=== PATIENT | female | born 1995 | race African-American/Black ===

== ENCOUNTER 2017-04-26 12:05 | Emergency (ER) | payer OTHER, MEDICAID ==
[~2017-04-26] VITALS: Ht 165.1 cm; Wt 84.0 kg
[~2017-04-26 12:05] MED LIST: MOTR200T44 PO; PRENTAB43 PO; ROBISYP5 PO; TYLE325T5 PO; [UNRECOGNIZED DRUG - CODE] MT
[2017-04-26 12:06] VITALS: BP 121/70
[2017-04-26] MEDS ORDERED: PREVTAB2 (12:16)
[2017-04-26] MEDS ORDERED: ONDANSETRON 4MG/2ML VIAL (J2405) IV ONE (14:00)
[2017-04-26] MEDS ORDERED: KETOROLAC 30 MG/ML VIAL (J1885) IV ONE (14:00)
[2017-04-26 14:34] LABS: BASO % 0.6 % (0.0-1.0); EOS # 0.1 K/mm3 (0.0-0.50); EOS % 1.4 % (0.0-3.0); LARGE UNSTAINED CELL # 0.1 K/mm3 (0.0-0.4); LARGE UNSTAINED CELL % 1.2 % (0.0-4.0); MEAN CORPUSCULAR HGB CONC 33.4 g/dl (32.0-36.5); MEAN CORPUSCULAR VOLUME 80.9 fl (80.0-96.0); MONO # 0.4 K/mm3 (0.0-0.8); MONO % 4.6 % (0.0-5.0); NEUTROPHILS # 5.2 K/mm3 (1.8-7.7); NEUTROPHILS % 67.2 % (36.0-66.0); PLATELET COUNT, AUTOMATED 238 k/mm3 (150-450); WHITE BLOOD COUNT 7.8 K/mm3 (4.0-10.0)
[2017-04-26 14:57] LABS: ALBUMIN 3.7 GM/DL (3.2-5.2); ALBUMIN/GLOBULIN RATIO 0.95 (1.00-1.93); ALKALINE PHOSPHATASE 84 U/L (45-117); ALT/SGPT 21 U/L (12-78); ANION GAP 6 MEQ/L (8-16); AST/SGOT 14 U/L (15-37); BILIRUBIN,TOTAL 0.3 MG/DL (0.2-1.0); BLOOD UREA NITROGEN 13 MG/DL (7-18); CALCIUM LEVEL 8.8 MG/DL (8.5-10.1); CARBON DIOXIDE LEVEL 29 MEQ/L (21-32); CHLORIDE LEVEL 105 MEQ/L (98-107); CREATININE FOR GFR 0.83 MG/DL (0.55-1.02); GLUCOSE, FASTING 75 MG/DL (70-105); POTASSIUM SERUM 4.5 MEQ/L (3.5-5.1); SODIUM LEVEL 140 MEQ/L (136-145); TOTAL PROTEIN 7.6 GM/DL (6.4-8.2)
[2017-04-26] MEDS ORDERED: PYRI1TAB5 PO (15:42)
[2017-04-26] MEDS ORDERED: CIPR-249 PO (15:42)
[2017-04-26] MEDS ORDERED: CIPROFLOXACIN 500 MG TAB PO ONE (15:45)
--- NOTE | 2017-04-26 16:35 | REP ---
Renal and bladder ultrasound: The kidneys are normal size. Right kidney measures 10.3 x 4.8 x 4.02 cm. Left kidney measures 11.0 4.5 x 5.4 cm. Renal cortical echogenicity is normal bilaterally. There is no hydronephrosis on the right on the left. There are no renal calculi, masses or cysts on the right on the left. Air. Bladder ultrasound: The bladder is incompletely distended and cannot be evaluated by ultrasound at this time. Impression: Negative renal ultrasound. The bladder is nondistended and cannot be evaluated at this time. Signed by Aubrey Agudelo MD 04/26/2017 03:13 P
--- NOTE | 2017-04-26 16:45 | REP ---
RIGHT UPPER QUADRANT ULTRASOUND: Real-time sonographic evaluation of the right upper quadrant performed. Gallbladder demonstrates no evidence of intraluminal sludge or calculi, wall thickening or pericholecystic fluid. There is no intrahepatic or extrahepatic biliary dilation, the common bile duct measuring 3 mm in diameter. Liver demonstrates diffuse heterogeneous increased echotexture compatible with diffuse fibrofatty infiltration. No gross liver mass is seen. Pancreas could not be visualized due to overlying bowel gas. Right kidney demonstrates no hydronephrosis or nephrolithiasis with normal size at 10.6 cm in length. No free fluid is seen. IMPRESSION: Diffuse fibrofatty infiltration of the liver. Otherwise negative right upper quadrant ultrasound. Signed by Aubrey Chinchilla MD 04/27/2017 05:03 P
== END 2017-04-26 15:53 | disposition home or self-care (01) ==
LOC: M ED 12:05
DX: N10 Acute pyelonephritis (principal)
CPT/HCPCS: 76705; 76775; 80053; 81001; 81025; 85025; 86140; 96374; 96375; 99284; J1885; J2405

== ENCOUNTER 2017-04-28 15:43 | Emergency (ER) | payer OTHER, MEDICAID ==
[~2017-04-28] VITALS: Ht 165.1 cm; Wt 83.2 kg
[~2017-04-28 15:43] MED LIST changes: +CIPR-249 PO; +PREVTAB2; +PYRI1TAB5 PO
[2017-04-28] MEDS ORDERED: IBUP-1022 PO (15:52)
[2017-04-28] MEDS ORDERED: IBUPROFEN 600 MG TAB PO ONE (16:45)
[2017-04-28 16:54] LABS: MEAN CORPUSCULAR HEMOGLOBIN 27.3 pg (27.0-33.0); MEAN CORPUSCULAR HGB CONC 33.7 g/dl (32.0-36.5); MEAN CORPUSCULAR VOLUME 81.2 fl (80.0-96.0); RED CELL DISTRIBUTION WIDTH 12.9 % (11.5-14.5); WHITE BLOOD COUNT 5.5 K/mm3 (4.0-10.0)
[2017-04-28 17:17] LABS: ALBUMIN 3.8 GM/DL (3.2-5.2); ALKALINE PHOSPHATASE 91 U/L (45-117); ALT/SGPT 23 U/L (12-78); AMYLASE 50 U/L (25-115); ANION GAP 6 MEQ/L (8-16); AST/SGOT 15 U/L (15-37); BILIRUBIN,DIRECT < 0.1 MG/DL (0.0-0.2); BILIRUBIN,TOTAL 0.2 MG/DL (0.2-1.0); BLOOD UREA NITROGEN 10 MG/DL (7-18); CARBON DIOXIDE LEVEL 30 MEQ/L (21-32); CHLORIDE LEVEL 104 MEQ/L (98-107); CREATININE FOR GFR 0.84 MG/DL (0.55-1.02); GLUCOSE, FASTING 83 MG/DL (70-105); SODIUM LEVEL 140 MEQ/L (136-145)
[2017-04-28 17:32] VITALS: BP 149/87
== END 2017-04-28 17:37 | disposition home or self-care (01) ==
LOC: M ED 15:43
DX: N10 Acute pyelonephritis (principal)

== ENCOUNTER 2017-07-04 12:40 | Emergency (ER) | payer OTHER, MEDICAID ==
[~2017-07-04] VITALS: Ht 165.1 cm; Wt 81.8 kg
[~2017-07-04 12:40] MED LIST changes: +IBUP-1022 PO
[2017-07-04] MEDS ORDERED: DEPO150I IM (13:14)
[2017-07-04] MEDS ORDERED: AUGMENTIN 875 MG TAB PO ONE (13:45)
[2017-07-04] MEDS ORDERED: AUGM875T28 PO (14:07)
[2017-07-04 14:12] VITALS: BP 120/71
== END 2017-07-04 14:12 | disposition home or self-care (01) ==
LOC: M ED 12:40
DX: J03.00 Acute streptococcal tonsillitis, unspecified (principal)

== ENCOUNTER 2017-11-07 11:41 | Emergency (ER) | payer OTHER, MEDICAID ==
[2017-11-07] MEDS: BENZONATATE 100 MG CAP PO (14:05)
[2017-11-07 15:02] LABS: INFLUENZA A AMPLIFICATION NEGATIVE (NEGATIVE); INFLUENZA B AMPLIFICATION NEGATIVE (NEGATIVE)
== END 2017-11-07 15:45 | disposition home or self-care (01) ==
LOC: M ED 11:41
DX: J06.9 Acute upper respiratory infection, unspecified (principal); B34.9 Viral infection, unspecified; Z79.3 Long term (current) use of hormonal contraceptives
CPT/HCPCS: 87502

== ENCOUNTER → 2018-01-04 | Outpatient (REF) | payer OTHER, MEDICAID ==
[2018-01-04 22:04] LABS: APPEARANCE, URINE CLEAR (CLEAR); BACTERIA, URINE AUTO 1+ (NEGATIVE); BILIRUBIN, URINE AUTO NEGATIVE (NEGATIVE); BLOOD, URINE BLOOD NEGATIVE (NEGATIVE); COLOR, URINE YELLOW (YELLOW); GLUCOSE, URINE (UA) AUTO NEGATIVE (NEGATIVE); KETONE, URINE AUTO NEGATIVE (NEGATIVE); LEUKOCYTE ESTERASE, URINE AUTO NEGATIVE (NEGATIVE); MUCUS, URINE SMALL (NEGATIVE); NITRITE, URINE AUTO NEGATIVE (NEGATIVE); PROTEIN, URINE AUTO NEGATIVE (NEGATIVE); RBC, URINE AUTO 0 /HPF (0-3); SPECIFIC GRAVITY URINE AUTO 1.019 (1.002-1.035); SQUAMOUS EPITHELIAL CELL UR AU 3 /HPF (0-6); UROBILINOGEN, URINE AUTO 0.2 mg/dL (0.0-2.0); WBC, URINE AUTO 2 /HPF (0-3)
== END ==
LOC: M LAB REF 09:37
DX: N39.0 Urinary tract infection, site not specified (principal)
CPT/HCPCS: 81001

== ENCOUNTER 2018-05-31 20:14 | Emergency (ER) | payer OTHER, MEDICAID ==
[2018-05-31 20:50] LABS: BASO % 0.2 % (0.0-1.0); EOS # 0.1 10^3/uL (0.0-0.50); EOS % 0.7 % (0.0-3.0); HEMATOCRIT 41.3 % (36.0-47.0); HEMOGLOBIN 13.8 g/dl (12.0-15.5); IMMATURE GRANULOCYTE % 0.2 % (0-3.0); LYMPH # 2.9 10^3/uL (1.5-6.5); LYMPH % 33.3 % (24.0-44.0); MEAN CORPUSCULAR HEMOGLOBIN 27.1 pg (27.0-33.0); MEAN CORPUSCULAR HGB CONC 33.4 g/dl (32.0-36.5); MONO # 0.6 10^3/uL (0.0-0.8); MONO % 6.8 % (0.0-5.0); NEUTROPHILS # 5.1 10^3/uL (1.8-7.7); NEUTROPHILS % 58.8 % (36.0-66.0); PLATELET COUNT, AUTOMATED 216 10^3/uL (150-450); RED CELL DISTRIBUTION WIDTH 12.5 % (11.5-14.5); WHITE BLOOD COUNT 8.6 10^3/uL (4.0-10.0)
[2018-05-31 20:53] LABS: CONTROL LINE UCG INT CTR LINE PRESENT; URINE PREG TEST NEGATIVE (NEGATIVE)
[2018-05-31 20:54] LABS: KETONE, URINE AUTO RFX NEGATIVE (NEGATIVE); LEUKOCYTE ESTERASE UR AUTO RFX NEGATIVE (NEGATIVE); NITRITE, URINE AUTO RFX NEGATIVE (NEGATIVE); RBC, URINE AUTO RFX 1 /HPF (0-3); SPECIFIC GRAVITY UR AUTO RFX 1.012 (1.002-1.035); SQUAM EPITHELIAL CELL UR AURFX 0 /HPF (0-6); WBC, URINE AUTO RFX 1 /HPF (0-3)
[2018-05-31 21:07] LABS: CONTROL LINE HCG INT CTR LINE PRESENT; HCG, SERUM QUALITATIVE NEGATIVE (NEGATIVE)
[2018-05-31 21:18] LABS: ANION GAP 7 MEQ/L (8-16); BLOOD UREA NITROGEN 10 MG/DL (7-18); CALCIUM LEVEL 9.1 MG/DL (8.5-10.1); CARBON DIOXIDE LEVEL 26 MEQ/L (21-32); CHLORIDE LEVEL 106 MEQ/L (98-107); CREATININE FOR GFR 0.83 MG/DL (0.55-1.30); GLUCOSE, FASTING 83 MG/DL (70-100); POTASSIUM SERUM 4.7 MEQ/L (3.5-5.1); SODIUM LEVEL 139 MEQ/L (136-145)
[2018-05-31] MEDS ORDERED: HYDROMORPHONE HCL 0.5 MG/ 0.5 ML SYRINGE (J1170 PER 1) IV (23:15)
== END 2018-06-01 01:47 | disposition home or self-care (01) ==
LOC: M ED 06-01 01:47
DX: N92.0 Excessive and frequent menstruation with regular cycle (principal); Z79.3 Long term (current) use of hormonal contraceptives
CPT/HCPCS: 76856

== ENCOUNTER 2018-06-03 11:19 | Emergency (ER) | payer OTHER ==
[2018-06-03] MEDS: NS 1,000 ML IV (13:46)
[2018-06-03] MEDS: MORPHINE 4 MG/ML 1ML VIAL/SYRINGE (J2270) IV (13:47)
[2018-06-03] MEDS: ONDANSETRON 4MG/2ML VIAL (J2405) IV (13:47)
[2018-06-03 14:20] LABS: KETONE, URINE AUTO RFX NEGATIVE (NEGATIVE); LEUKOCYTE ESTERASE UR AUTO RFX NEGATIVE (NEGATIVE); NITRITE, URINE AUTO RFX NEGATIVE (NEGATIVE); RBC, URINE AUTO RFX 7 /HPF (0-3); SPECIFIC GRAVITY UR AUTO RFX 1.021 (1.002-1.035); SQUAM EPITHELIAL CELL UR AURFX 1 /HPF (0-6); WBC, URINE AUTO RFX 5 /HPF (0-3)
[2018-06-03 14:37] LABS: BASO % 0.3 % (0.0-1.0); EOS # 0.1 10^3/uL (0.0-0.50); EOS % 1.5 % (0.0-3.0); HEMATOCRIT 34.6 % (36.0-47.0); HEMOGLOBIN 11.7 g/dl (12.0-15.5); IMMATURE GRANULOCYTE % 0.2 % (0-3.0); LYMPH # 1.8 10^3/uL (1.5-6.5); MEAN CORPUSCULAR HEMOGLOBIN 27.1 pg (27.0-33.0); MEAN CORPUSCULAR HGB CONC 33.8 g/dl (32.0-36.5); MEAN CORPUSCULAR VOLUME 80.1 fl (80.0-96.0); MONO # 0.6 10^3/uL (0.0-0.8); MONO % 6.8 % (0.0-5.0); NEUTROPHILS # 6.8 10^3/uL (1.8-7.7); NEUTROPHILS % 72.2 % (36.0-66.0); PLATELET COUNT, AUTOMATED 188 10^3/uL (150-450); RED BLOOD COUNT 4.32 10^6/uL (4.00-5.40); RED CELL DISTRIBUTION WIDTH 12.4 % (11.5-14.5); WHITE BLOOD COUNT 9.4 10^3/uL (4.0-10.0)
[2018-06-03 15:26] LABS: ALBUMIN 3.4 GM/DL (3.2-5.2); ALBUMIN/GLOBULIN RATIO 1.06 (1.00-1.93); ALKALINE PHOSPHATASE 61 U/L (45-117); ALT/SGPT 20 U/L (12-78); ANION GAP 8 MEQ/L (8-16); AST/SGOT 16 U/L (7-37); BILIRUBIN,DIRECT 0.1 MG/DL (0.0-0.2); BILIRUBIN,TOTAL 0.3 MG/DL (0.2-1.0); BLOOD UREA NITROGEN 10 MG/DL (7-18); CALCIUM LEVEL 8.4 MG/DL (8.5-10.1); CARBON DIOXIDE LEVEL 24 MEQ/L (21-32); CHLORIDE LEVEL 109 MEQ/L (98-107); CREATININE FOR GFR 0.64 MG/DL (0.55-1.30); GLUCOSE, FASTING 81 MG/DL (70-100); LIPASE 85 U/L (73-393); POTASSIUM SERUM 4.9 MEQ/L (3.5-5.1); SODIUM LEVEL 141 MEQ/L (136-145); TOTAL PROTEIN 6.6 GM/DL (6.4-8.2)
[2018-06-03] MEDS ORDERED: ISOVUE-370 76% 100ML VIAL (Q9967) As Ordered (15:31)
== END 2018-06-03 17:19 | disposition home or self-care (01) ==
LOC: M ED 11:19
DX: R10.2 Pelvic and perineal pain (principal)
CPT/HCPCS: J2270

== ENCOUNTER 2018-06-08 07:42 | Emergency (ER) | payer OTHER ==
[2018-06-08 08:59] LABS: BASO % 0.3 % (0.0-1.0); EOS # 0.1 10^3/uL (0.0-0.50); HEMATOCRIT 35.4 % (36.0-47.0); HEMOGLOBIN 11.9 g/dl (12.0-15.5); IMMATURE GRANULOCYTE % 0.3 % (0-3.0); LYMPH # 1.5 10^3/uL (1.5-6.5); LYMPH % 18.7 % (24.0-44.0); MEAN CORPUSCULAR HEMOGLOBIN 26.9 pg (27.0-33.0); MEAN CORPUSCULAR HGB CONC 33.6 g/dl (32.0-36.5); MEAN CORPUSCULAR VOLUME 79.9 fl (80.0-96.0); MONO # 0.8 10^3/uL (0.0-0.8); MONO % 9.7 % (0.0-5.0); NEUTROPHILS # 5.5 10^3/uL (1.8-7.7); PLATELET COUNT, AUTOMATED 241 10^3/uL (150-450); RED BLOOD COUNT 4.43 10^6/uL (4.00-5.40); RED CELL DISTRIBUTION WIDTH 12.3 % (11.5-14.5); WHITE BLOOD COUNT 7.8 10^3/uL (4.0-10.0)
[2018-06-08 09:17] LABS: ALBUMIN 3.3 GM/DL (3.2-5.2); ALKALINE PHOSPHATASE 72 U/L (45-117); ALT/SGPT 18 U/L (12-78); ANION GAP 9 MEQ/L (8-16); AST/SGOT 9 U/L (7-37); BILIRUBIN,DIRECT < 0.1 MG/DL (0.0-0.2); BILIRUBIN,TOTAL 0.3 MG/DL (0.2-1.0); BLOOD UREA NITROGEN 8 MG/DL (7-18); CALCIUM LEVEL 8.6 MG/DL (8.5-10.1); CARBON DIOXIDE LEVEL 25 MEQ/L (21-32); CHLORIDE LEVEL 110 MEQ/L (98-107); CREATININE FOR GFR 0.68 MG/DL (0.55-1.30); GLUCOSE, FASTING 80 MG/DL (70-100); POTASSIUM SERUM 4.1 MEQ/L (3.5-5.1); SODIUM LEVEL 144 MEQ/L (136-145); TOTAL PROTEIN 7.4 GM/DL (6.4-8.2)
[2018-06-08 09:29] LABS: APPEARANCE, URINE HAZY (CLEAR); BACTERIA, URINE AUTO 1+ (NEGATIVE); BILIRUBIN, URINE AUTO NEGATIVE (NEGATIVE); BLOOD, URINE BLOOD 3+ (NEGATIVE); COLOR, URINE YELLOW (YELLOW); GLUCOSE, URINE (UA) AUTO NEGATIVE (NEGATIVE); KETONE, URINE AUTO NEGATIVE (NEGATIVE); LEUKOCYTE ESTERASE, URINE AUTO 1+ (NEGATIVE); MUCUS, URINE SMALL (NEGATIVE); NITRITE, URINE AUTO NEGATIVE (NEGATIVE); PROTEIN, URINE AUTO 1+ mg/dL (NEGATIVE); RBC, URINE AUTO 2 /HPF (0-3); SPECIFIC GRAVITY URINE AUTO 1.028 (1.002-1.035); SQUAMOUS EPITHELIAL CELL UR AU 3 /HPF (0-6); WBC, URINE AUTO 15 /HPF (0-3)
[2018-06-08] MEDS: KETOROLAC 60 MG/2 ML VIAL (J1885) IM (10:13)
== END 2018-06-08 11:30 | disposition home or self-care (01) ==
LOC: M ED 07:42
DX: N83.201 Unspecified ovarian cyst, right side (principal); Z79.3 Long term (current) use of hormonal contraceptives
CPT/HCPCS: J1885

== ENCOUNTER 2018-06-10 21:05 | Inpatient (IN) | payer OTHER ==
[2018-06-10] MEDS: NS 1,000 ML IV (23:00)
[2018-06-10 23:07] LABS: BASO % 0.2 % (0.0-1.0); EOS # 0.1 10^3/uL (0.0-0.50); EOS % 0.9 % (0.0-3.0); HEMATOCRIT 36.3 % (36.0-47.0); HEMOGLOBIN 12.1 g/dl (12.0-15.5); IMMATURE GRANULOCYTE % 0.3 % (0-3.0); LYMPH # 1.6 10^3/uL (1.5-6.5); LYMPH % 18.4 % (24.0-44.0); MEAN CORPUSCULAR HEMOGLOBIN 27.1 pg (27.0-33.0); MEAN CORPUSCULAR HGB CONC 33.3 g/dl (32.0-36.5); MEAN CORPUSCULAR VOLUME 81.4 fl (80.0-96.0); MONO # 0.8 10^3/uL (0.0-0.8); MONO % 9.5 % (0.0-5.0); NEUTROPHILS # 6.2 10^3/uL (1.8-7.7); NEUTROPHILS % 70.7 % (36.0-66.0); PLATELET COUNT, AUTOMATED 240 10^3/uL (150-450); RED BLOOD COUNT 4.46 10^6/uL (4.00-5.40); RED CELL DISTRIBUTION WIDTH 12.2 % (11.5-14.5); WHITE BLOOD COUNT 8.8 10^3/uL (4.0-10.0)
[2018-06-10] MEDS: ONDANSETRON 4MG/2ML VIAL (J2405) IV (23:07)
[2018-06-10] MEDS: MORPHINE 4 MG/ML 1ML VIAL/SYRINGE (J2270) IV (23:08)
[2018-06-10 23:44] LABS: POS COUNT POS FLAG
[2018-06-10 23:55] LABS: ALBUMIN 3.2 GM/DL (3.2-5.2); ALKALINE PHOSPHATASE 88 U/L (45-117); ALT/SGPT 22 U/L (12-78); ANION GAP 7 MEQ/L (8-16); AST/SGOT 18 U/L (7-37); BILIRUBIN,DIRECT 0.1 MG/DL (0.0-0.2); BILIRUBIN,TOTAL 0.3 MG/DL (0.2-1.0); BLOOD UREA NITROGEN 8 MG/DL (7-18); CALCIUM LEVEL 8.6 MG/DL (8.5-10.1); CARBON DIOXIDE LEVEL 28 MEQ/L (21-32); CHLORIDE LEVEL 105 MEQ/L (98-107); CREATININE FOR GFR 0.71 MG/DL (0.55-1.30); GLUCOSE, FASTING 86 MG/DL (70-100); LIPASE 123 U/L (73-393); SODIUM LEVEL 140 MEQ/L (136-145); TOTAL PROTEIN 7.8 GM/DL (6.4-8.2)
[2018-06-10 23:58] LABS: LACTIC ACID SEPSIS PROTOCOL 0.6 MMOL/L (0.4-2.0)
[2018-06-11 00:10] LABS: CONTROL LINE HCG INT CTR LINE PRESENT; HCG, SERUM QUALITATIVE NEGATIVE (NEGATIVE)
[2018-06-11] MEDS ORDERED: ISOVUE-370 76% 100ML VIAL (Q9967) As Ordered (00:35)
[2018-06-11 02:22] LABS: KETONE, URINE AUTO RFX 1+ mg/dL (NEGATIVE); NITRITE, URINE AUTO RFX NEGATIVE (NEGATIVE); RBC, URINE AUTO RFX 8 /HPF (0-3); SQUAM EPITHELIAL CELL UR AURFX 9 /HPF (0-6)
[2018-06-11 02:25] LABS: LEUKOCYTE ESTERASE UR AUTO RFX 1+ (NEGATIVE); WBC, URINE AUTO RFX 14 /HPF (0-3)
[2018-06-11 02:26] LABS: SPECIFIC GRAVITY UR AUTO RFX >1.060 (1.002-1.035)
[2018-06-11] MEDS: MORPHINE 4 MG/ML 1ML VIAL/SYRINGE (J2270) IV ×4 (02:29→16:10)
[2018-06-11] MEDS: NS 1,000 ML IV (04:18)
[2018-06-11] MEDS: PANTOPRAZOLE 40MG INJ (PROTONIX) (C9113) IV (14:09)
[2018-06-11] MEDS: ONDANSETRON 4MG/2ML VIAL (J2405) IV (14:09)
[2018-06-11] MEDS: cefTRIAXone SOD 2 GM in D5W MINI-BAG PLUS 50 ML IV (14:26)
[2018-06-11] MEDS: KCL 20MEQ in NS 1000ML 1,000 ML IV ×2 (16:24→22:20)
[2018-06-11] MEDS: SENOKOT S TAB PO ×2 (16:24→22:21)
[2018-06-11] MEDS: KETOROLAC 30 MG/ML VIAL (J1885) IV ×2 (16:42→22:21)
[2018-06-11] MEDS ORDERED: PROHANCE 279.3MG/ML 15ML VIAL (A9576) As Ordered (21:32)
[2018-06-11] MEDS: HEPARIN SOD (PORCINE) 5000 UNITS/ML VIAL SC (22:20)
[2018-06-12] MEDS: MORPHINE 4 MG/ML 1ML VIAL/SYRINGE (J2270) IV (03:36)
[2018-06-12] MEDS: KETOROLAC 30 MG/ML VIAL (J1885) IV ×4 (04:56→22:22)
[2018-06-12] MEDS: KCL 20MEQ in NS 1000ML 1,000 ML IV ×3 (04:57→22:23)
[2018-06-12 06:45] LABS: HEMATOCRIT 28.9 % (36.0-47.0); MEAN CORPUSCULAR HEMOGLOBIN 27.1 pg (27.0-33.0); MEAN CORPUSCULAR HGB CONC 33.9 g/dl (32.0-36.5); MEAN CORPUSCULAR VOLUME 79.8 fl (80.0-96.0); PLATELET COUNT, AUTOMATED 227 10^3/uL (150-450); RED BLOOD COUNT 3.62 10^6/uL (4.00-5.40); RED CELL DISTRIBUTION WIDTH 11.9 % (11.5-14.5); WHITE BLOOD COUNT 6.9 10^3/uL (4.0-10.0)
[2018-06-12 07:00] LABS: HEMOGLOBIN 9.8 g/dl (12.0-15.5)
[2018-06-12 07:09] LABS: ALBUMIN 2.4 GM/DL (3.2-5.2); ALBUMIN/GLOBULIN RATIO 0.53 (1.00-1.93); ALKALINE PHOSPHATASE 72 U/L (45-117); ALT/SGPT 15 U/L (12-78); ANION GAP 11 MEQ/L (8-16); AST/SGOT 12 U/L (7-37); BILIRUBIN,TOTAL 0.4 MG/DL (0.2-1.0); BLOOD UREA NITROGEN 5 MG/DL (7-18); CALCIUM LEVEL 8.6 MG/DL (8.5-10.1); CARBON DIOXIDE LEVEL 23 MEQ/L (21-32); CHLORIDE LEVEL 107 MEQ/L (98-107); CREATININE FOR GFR 0.52 MG/DL (0.55-1.30); GLUCOSE, FASTING 69 MG/DL (70-100); MAGNESIUM LEVEL 1.8 MG/DL (1.8-2.4); SODIUM LEVEL 141 MEQ/L (136-145); TOTAL PROTEIN 6.9 GM/DL (6.4-8.2)
[2018-06-12] MEDS: SENOKOT S TAB PO ×2 (08:01→20:12)
[2018-06-12] MEDS: HEPARIN SOD (PORCINE) 5000 UNITS/ML VIAL SC ×2 (08:01→20:12)
[2018-06-12] MEDS: traMADol 50 MG TAB PO ×2 (10:11→20:14)
[2018-06-12] MEDS: SUCRALFATE 1 GM TAB PO ×3 (13:08→20:12)
[2018-06-12] MEDS: PANTOPRAZOLE 40MG INJ (PROTONIX) (C9113) IV (14:01)
[2018-06-12] MEDS: cefTRIAXone SOD 2 GM in D5W MINI-BAG PLUS 50 ML IV (14:02)
[2018-06-12] MEDS: ONDANSETRON 4MG/2ML VIAL (J2405) IV (20:12)
[2018-06-12 23:49] LABS: CHLAMYDIA DNA AMPLIFICATION POSITIVE (NEGATIVE); GC DNA AMPLIFICATION NEGATIVE (NEGATIVE)
[2018-06-13] MEDS: KETOROLAC 30 MG/ML VIAL (J1885) IV ×4 (04:29→22:51)
[2018-06-13] MEDS: KCL 20MEQ in NS 1000ML 1,000 ML IV ×2 (06:53→14:47)
[2018-06-13 07:18] LABS: HEMATOCRIT 28.6 % (36.0-47.0); HEMOGLOBIN 9.6 g/dl (12.0-15.5); MEAN CORPUSCULAR HEMOGLOBIN 26.4 pg (27.0-33.0); MEAN CORPUSCULAR HGB CONC 33.6 g/dl (32.0-36.5); MEAN CORPUSCULAR VOLUME 78.8 fl (80.0-96.0); PLATELET COUNT, AUTOMATED 222 10^3/uL (150-450); RED BLOOD COUNT 3.63 10^6/uL (4.00-5.40); WHITE BLOOD COUNT 6.2 10^3/uL (4.0-10.0)
[2018-06-13] MEDS: SUCRALFATE 1 GM TAB PO ×4 (07:40→20:55)
[2018-06-13 08:05] LABS: BLOOD UREA NITROGEN 4 MG/DL (7-18); CHLORIDE LEVEL 107 MEQ/L (98-107); GLUCOSE, FASTING 71 MG/DL (70-100); POTASSIUM SERUM 4.3 MEQ/L (3.5-5.1); SODIUM LEVEL 141 MEQ/L (136-145)
[2018-06-13 08:06] LABS: ALKALINE PHOSPHATASE 71 U/L (45-117); ALT/SGPT 13 U/L (12-78); ANION GAP 8 MEQ/L (8-16); AST/SGOT 10 U/L (7-37); BILIRUBIN,TOTAL 0.3 MG/DL (0.2-1.0); CALCIUM LEVEL 8.7 MG/DL (8.5-10.1); CARBON DIOXIDE LEVEL 26 MEQ/L (21-32); TOTAL PROTEIN 6.9 GM/DL (6.4-8.2)
[2018-06-13 08:07] LABS: ALBUMIN 2.5 GM/DL (3.2-5.2); ALBUMIN/GLOBULIN RATIO 0.57 (1.00-1.93)
[2018-06-13 08:08] LABS: MAGNESIUM LEVEL 1.8 MG/DL (1.8-2.4)
[2018-06-13] MEDS: HEPARIN SOD (PORCINE) 5000 UNITS/ML VIAL SC ×2 (08:35→20:55)
[2018-06-13] MEDS: DOXYCYCLINE HYCLATE 100 MG in D5W MINI-BAG PLUS 100 ML IV ×2 (08:35→19:41)
[2018-06-13] MEDS: SENOKOT S TAB PO ×2 (08:35→20:55)
[2018-06-13] MEDS: traMADol 50 MG TAB PO ×2 (08:38→14:53)
[2018-06-13] MEDS: cefoTEtan DISODIUM 2 GM in D5W MINI-BAG PLUS 50 ML IV ×2 (09:57→20:55)
[2018-06-13] MEDS: PANTOPRAZOLE 40MG INJ (PROTONIX) (C9113) IV (14:46)
[2018-06-14] MEDS: KCL 20MEQ in NS 1000ML 1,000 ML IV (00:10)
[2018-06-14] MEDS: KETOROLAC 30 MG/ML VIAL (J1885) IV ×2 (04:30→12:24)
[2018-06-14 07:44] LABS: HEMATOCRIT 30.1 % (36.0-47.0); HEMOGLOBIN 10.4 g/dl (12.0-15.5); MEAN CORPUSCULAR HGB CONC 34.6 g/dl (32.0-36.5); MEAN CORPUSCULAR VOLUME 78.2 fl (80.0-96.0); PLATELET COUNT, AUTOMATED 260 10^3/uL (150-450); RED BLOOD COUNT 3.85 10^6/uL (4.00-5.40); RED CELL DISTRIBUTION WIDTH 11.9 % (11.5-14.5); WHITE BLOOD COUNT 5.3 10^3/uL (4.0-10.0)
[2018-06-14] MEDS: SUCRALFATE 1 GM TAB PO ×2 (08:23→12:24)
[2018-06-14] MEDS: DOXYCYCLINE HYCLATE 100 MG in D5W MINI-BAG PLUS 100 ML IV (08:23)
[2018-06-14 08:33] LABS: ALBUMIN 2.6 GM/DL (3.2-5.2); ALBUMIN/GLOBULIN RATIO 0.55 (1.00-1.93); ALKALINE PHOSPHATASE 76 U/L (45-117); ALT/SGPT 15 U/L (12-78); ANION GAP 7 MEQ/L (8-16); AST/SGOT 19 U/L (7-37); BILIRUBIN,TOTAL 0.2 MG/DL (0.2-1.0); BLOOD UREA NITROGEN 4 MG/DL (7-18); CALCIUM LEVEL 8.8 MG/DL (8.5-10.1); CARBON DIOXIDE LEVEL 27 MEQ/L (21-32); CHLORIDE LEVEL 107 MEQ/L (98-107); CREATININE FOR GFR 0.67 MG/DL (0.55-1.30); GLUCOSE, FASTING 81 MG/DL (70-100); MAGNESIUM LEVEL 1.7 MG/DL (1.8-2.4); POTASSIUM SERUM 4.1 MEQ/L (3.5-5.1); SODIUM LEVEL 141 MEQ/L (136-145); TOTAL PROTEIN 7.3 GM/DL (6.4-8.2)
[2018-06-14] MEDS: cefTRIAXone SOD 250 MG VIAL (J0696) IM (09:19)
[2018-06-14] MEDS: HEPARIN SOD (PORCINE) 5000 UNITS/ML VIAL SC (09:19)
[2018-06-14] MEDS: SENOKOT S TAB PO (09:19)
== END 2018-06-14 13:45 | disposition home or self-care (01) | DRG 690 ==
LOC: M ED INP 06-11 13:18 → M ED 21:05 → M PED 06-11 14:45
DX: A56.11 Chlamydial female pelvic inflammatory disease (principal)

== ENCOUNTER → 2018-06-10 | Outpatient (CLI) | payer OTHER | LOC: M RAD 15:59 | DX: R31.9 Hematuria, unspecified (principal); R10.11 Right upper quadrant pain ==

== ENCOUNTER → 2019-05-09 | Outpatient (REF) | payer OTHER, MEDICAID ==
[~2019-05-09] MED LIST changes: +AUGM875T28 PO; +CEPH500C PO; +DEPO150I IM; +DOXY-350 PO; +IBUP-1114 PO; +OXYC1TAB23 PO; +TESS100C PO; +oxycodone PO
== END ==
LOC: M LAB REF 13:54
PROVIDERS: ATTEND Physician Assistant
DX: R30.0 Dysuria (principal)

== ENCOUNTER 2019-08-10 13:07 | Emergency (ER) | payer MEDICAID, OTHER ==
[~2019-08-10] VITALS: Ht 165.1 cm; Wt 79.5 kg
[2019-08-10 13:07] VITALS: BP 119/58
[2019-08-10 13:51] LABS: BASO % 0.3 % (0.0-1.0); EOS # 0.1 10^3/uL (0.0-0.5); EOS % 0.8 % (0.0-3.0); HEMOGLOBIN 13.3 g/dl (12.0-15.5); LYMPH # 2.3 10^3/uL (1.5-5.0); LYMPH % 29.4 % (24.0-44.0); MEAN CORPUSCULAR HEMOGLOBIN 27.8 pg (27.0-33.0); MEAN CORPUSCULAR HGB CONC 33.3 g/dl (32.0-36.5); MEAN CORPUSCULAR VOLUME 83.7 fl (80.0-96.0); MONO # 0.6 10^3/uL (0.0-0.8); MONO % 7.9 % (0.0-5.0); NEUTROPHILS # 4.8 10^3/uL (1.5-8.5); NEUTROPHILS % 61.3 % (36.0-66.0); PLATELET COUNT, AUTOMATED 225 10^3/uL (150-450); RED BLOOD COUNT 4.78 10^6/uL (4.00-5.40); WHITE BLOOD COUNT 7.8 10^3/uL (4.0-10.0)
[2019-08-10 14:20] LABS: ALBUMIN 3.7 GM/DL (3.2-5.2); ALT/SGPT 17 U/L (12-78); BILIRUBIN,DIRECT 0.2 MG/DL (0.0-0.2); BILIRUBIN,TOTAL 0.7 MG/DL (0.2-1.0); BLOOD UREA NITROGEN 6 MG/DL (7-18); CALCIUM LEVEL 8.8 MG/DL (8.5-10.1); CARBON DIOXIDE LEVEL 27 MEQ/L (21-32); CHLORIDE LEVEL 106 MEQ/L (98-107); GLOMERULAR FILTRATION RATE > 60.0 (>60); GLUCOSE, FASTING 82 MG/DL (70-100); LIPASE 61 U/L (73-393); POTASSIUM SERUM 4.7 MEQ/L (3.5-5.1); SODIUM LEVEL 139 MEQ/L (136-145); TOTAL PROTEIN 6.8 GM/DL (6.4-8.2)
[2019-08-10 15:02] LABS: HCG, SERUM QUANTITATIVE 10432 MIU/ML
[2019-08-10] MEDS ORDERED: ACETAMINOPHEN 325 MG TAB PO ONE (15:15)
--- NOTE | 2019-08-10 18:38 | REPVR ---
PROCEDURE INFORMATION: Exam: US First Trimester, Transabdominal Exam date and time: 08/10/2019 5:19 PM Age: 23 years old Clinical history: complicated by abdominal or pelvic pain; Lower; First trimester; Gestational age or lmp: 6w 2d; ; Additional info: Pelvic pain, (was unaware) TECHNIQUE: Imaging protocol: Real-time transabdominal obstetrical ultrasound of the maternal pelvis and a first trimester , less than 14 weeks 0 days, with image documentation. COMPARISON: US OBS FOLL UP OR REPEAT EACH [facility] 2015-05-06 16:58 FINDINGS: GESTATION: Gestation: 12.3 CC gestational sac. Yolk sac visualized. No pole present. Gestational sac is elongated and misshapen. Heart rate: No cardiac activity. Placenta: Unremarkable. No subchorionic bleed. Amniotic fluid: Amniotic and chorionic fluid are normal for gestational age. BIOMETRY: Estimated gestational age: Pacer gestational sac, estimated gestational age 5 weeks and 6 days. Estimated due date: Estimated due date 04/05/2020. MATERNAL: Uterus: 6 x 4.6 6.5 cm anteverted uterus. Cervix: Unremarkable. Right adnexa: 2.3 x 1.5 x 1.8 cm right ovary with normal follicular architecture and blood flow. Left adnexa: 2.6 x 2.3 x 2.7 cm left ovary with multiple cysts measuring up to 2.3 cm. Intraperitoneal: Small amount of free fluid in the cul-de-sac. IMPRESSION: Early intrauterine gestation with elongated, misshapen gestational sac containing a yolk sac, but no pole or cardiac activity. Recommend short-term followup, potentially failure but too early to be certain, given transabdominal type technique and appearance. Electronically signed by: Tyrese Mishra On 08/10/2019 18:37:57 PM
== END 2019-08-10 18:29 | disposition home or self-care (01) ==
LOC: M ED 13:07
DX: Z32.01 Encounter for pregnancy test, result positive (principal); R51 Headache

== ENCOUNTER 2019-08-14 18:04 | Emergency (ER) | payer MEDICAID ==
[~2019-08-14] VITALS: Ht 165.1 cm; Wt 73.2 kg
[2019-08-14] MEDS ORDERED: ACETAMINOPHEN TAB 650MG DOSE (2X325MG) PO ONE (18:45)
[2019-08-14 19:06] LABS: GLUCOSE, URINE (UA) MANUAL NEGATIVE (NEGATIVE); KETONE, URINE MANUAL 3+ mg/dL (NEGATIVE)
[2019-08-14 19:07] LABS: BILIRUBIN, URINE MANUAL NEGATIVE (NEGATIVE); UROBILINOGEN, URINE MANUAL NORMAL (NORMAL)
[2019-08-14 19:09] LABS: BASO % 0.5 % (0.0-1.0); EOS # 0.1 10^3/uL (0.0-0.5); EOS % 0.6 % (0.0-3.0); HEMOGLOBIN 13.8 g/dl (12.0-15.5); LYMPH # 2.2 10^3/uL (1.5-5.0); LYMPH % 27.4 % (24.0-44.0); MEAN CORPUSCULAR HEMOGLOBIN 27.7 pg (27.0-33.0); MEAN CORPUSCULAR HGB CONC 33.7 g/dl (32.0-36.5); MEAN CORPUSCULAR VOLUME 82.3 fl (80.0-96.0); MONO # 0.6 10^3/uL (0.0-0.8); MONO % 7.4 % (0.0-5.0); NEUTROPHILS # 5.1 10^3/uL (1.5-8.5); NEUTROPHILS % 63.8 % (36.0-66.0); PLATELET COUNT, AUTOMATED 224 10^3/uL (150-450); RED BLOOD COUNT 4.98 10^6/uL (4.00-5.40)
[2019-08-14 19:55] LABS: ALBUMIN 3.7 GM/DL (3.2-5.2); ALT/SGPT 17 U/L (12-78); BILIRUBIN,DIRECT 0.1 MG/DL (0.0-0.2); BILIRUBIN,TOTAL 0.4 MG/DL (0.2-1.0); BLOOD UREA NITROGEN 7 MG/DL (7-18); CALCIUM LEVEL 8.6 MG/DL (8.5-10.1); CARBON DIOXIDE LEVEL 27 MEQ/L (21-32); CHLORIDE LEVEL 105 MEQ/L (98-107); CREATININE FOR GFR 0.57 MG/DL (0.55-1.30); GLOMERULAR FILTRATION RATE > 60.0 (>60); GLUCOSE, FASTING 82 MG/DL (70-100); HCG, SERUM QUANTITATIVE 30083 MIU/ML; LIPASE 72 U/L (73-393); SODIUM LEVEL 138 MEQ/L (136-145); TOTAL PROTEIN 7.4 GM/DL (6.4-8.2)
[2019-08-14 21:45] VITALS: BP 111/68
--- NOTE | 2019-08-15 06:53 | REP ---
Clinical: Abdominal pain. Dating and viability. Technique: Transabdominal first trimester obstetrical ultrasound with color Doppler evaluation. Findings: Early intrauterine identified. Gestational sac with yolk sac and pole noted. CRL of 2 mm corresponds to 5 weeks 5 days gestational age with estimated date of delivery 04/10/2020. heart rate equals 99 beats per minute. No subchorionic hemorrhage or obvious abnormality appreciated. Maternal ovaries are normal with left corpus luteal cyst noted. Impression: Single live early intrauterine at 5 weeks 5 days gestational age. Complete anatomical assessment should be performed at 19-20 weeks. Electronically Signed by Jurgen Dejesus MD 08/15/2019 06:45 A
== END 2019-08-14 21:47 | disposition home or self-care (01) ==
LOC: M ED 18:04
DX: O26.891 Other specified pregnancy related conditions, first trimester (principal); R10.9 Unspecified abdominal pain; O34.81 Maternal care for other abnormalities of pelvic organs, first trimester; N83.202 Unspecified ovarian cyst, left side; Z3A.01 Less than 8 weeks gestation of pregnancy; Z86.19 Personal history of other infectious and parasitic diseases

== ENCOUNTER 2019-08-20 19:08 | Emergency (ER) | payer MEDICAID, OTHER ==
[~2019-08-20] VITALS: Ht 160 cm; Wt 77.0 kg
[2019-08-20] MEDS ORDERED: PREN29TA4 PO (19:17)
[2019-08-20 19:51] LABS: HEMATOCRIT 40.2 % (36.0-47.0); HEMOGLOBIN 13.4 g/dl (12.0-15.5); MEAN CORPUSCULAR HEMOGLOBIN 27.6 pg (27.0-33.0); MEAN CORPUSCULAR HGB CONC 33.3 g/dl (32.0-36.5); MEAN CORPUSCULAR VOLUME 82.7 fl (80.0-96.0); PLATELET COUNT, AUTOMATED 248 10^3/uL (150-450); RED BLOOD COUNT 4.86 10^6/uL (4.00-5.40); WHITE BLOOD COUNT 10.1 10^3/uL (4.0-10.0)
[2019-08-20 20:32] LABS: ACETAMINOPHEN LEVEL < 2.0 UG/ML (10.0-30.0); ALBUMIN 4.1 GM/DL (3.2-5.2); ALT/SGPT 19 U/L (12-78); AMPHETAMINES LEVEL URINE NEGATIVE (NEGATIVE); BARBITURATES URINE NEGATIVE (NEGATIVE); BENZODIAZEPINES URINE NEGATIVE (NEGATIVE); BILIRUBIN,DIRECT 0.2 MG/DL (0.0-0.2); BILIRUBIN,TOTAL 0.3 MG/DL (0.2-1.0); BLOOD UREA NITROGEN 6 MG/DL (7-18); CALCIUM LEVEL 9.2 MG/DL (8.5-10.1); CANNABINOIDS URINE POSITIVE (NEGATIVE); CARBON DIOXIDE LEVEL 30 MEQ/L (21-32); CHLORIDE LEVEL 103 MEQ/L (98-107); COCAINE METABOLITE URINE NEGATIVE (NEGATIVE); ETHYL ALCOHOL (ETHANOL) < 0.003 % (0.000-0.010); GLOMERULAR FILTRATION RATE > 60.0 (>60); GLUCOSE, FASTING 87 MG/DL (70-100); METHADONE URINE NEGATIVE (NEGATIVE); OPIATES URINE NEGATIVE (NEGATIVE); PHENCYCLIDINE URINE NEGATIVE (NEGATIVE); POTASSIUM SERUM 3.4 MEQ/L (3.5-5.1); SALICYLATE LEVEL < 1.7 MG/DL (5.0-30.0); SODIUM LEVEL 138 MEQ/L (136-145); TOTAL PROTEIN 7.8 GM/DL (6.4-8.2)
[2019-08-20 20:48] LABS: HCG, SERUM QUALITATIVE POSITIVE (NEGATIVE)
[2019-08-20] MEDS ORDERED: MULTTAB20 PO (22:01)
[2019-08-20 23:26] VITALS: BP 122/67
== END 2019-08-20 23:28 | disposition home or self-care (01) ==
LOC: M ED 19:08
DX: O99.341 Other mental disorders complicating pregnancy, first trimester (principal); R45.851 Suicidal ideations; F41.8 Other specified anxiety disorders; F33.9 Major depressive disorder, recurrent, unspecified; Z3A.01 Less than 8 weeks gestation of pregnancy
CPT/HCPCS: 36415; 80048; 80076; 80307; 84443; 84703; 85027; 99283; G0480

== ENCOUNTER → 2019-08-22 | Outpatient (REF) | payer OTHER ==
[~2019-08-22] MED LIST changes: +MULTTAB20 PO; +PREN29TA4 PO
[2019-08-22 17:33] LABS: APPEARANCE, URINE CLOUDY (CLEAR); BACTERIA, URINE AUTO 1+ (NEGATIVE); BILIRUBIN, URINE AUTO NEGATIVE (NEGATIVE); BLOOD, URINE BLOOD NEGATIVE (NEGATIVE); COLOR, URINE YELLOW (YELLOW); GLUCOSE, URINE (UA) AUTO NEGATIVE (NEGATIVE); KETONE, URINE AUTO NEGATIVE (NEGATIVE); LEUKOCYTE ESTERASE, URINE AUTO TRACE (NEGATIVE); MUCUS, URINE SMALL (NEGATIVE); NITRITE, URINE AUTO NEGATIVE (NEGATIVE); PROTEIN, URINE AUTO NEGATIVE (NEGATIVE); RBC, URINE AUTO 1 /HPF (0-3); SPECIFIC GRAVITY URINE AUTO 1.026 (1.002-1.035); SQUAMOUS EPITHELIAL CELL UR AU 6 /HPF (0-6); UROBILINOGEN, URINE AUTO 0.2 mg/dL (0.0-2.0); WBC, URINE AUTO 9 /HPF (0-3)
== END ==
LOC: M LAB REF 16:18
PROVIDERS: ATTEND Physician Assistant Medical
DX: N39.0 Urinary tract infection, site not specified (principal)

== ENCOUNTER 2019-09-20 11:38 | Emergency (ER) | payer OTHER ==
[~2019-09-20] VITALS: Ht 165.1 cm; Wt 77.3 kg
[2019-09-20] MEDS ORDERED: ONDA-83 (12:04)
[2019-09-20 12:11] LABS: BASO % 0.3 % (0.0-1.0); EOS # 0.1 10^3/uL (0.0-0.5); EOS % 0.6 % (0.0-3.0); HEMATOCRIT 35.9 % (36.0-47.0); HEMOGLOBIN 12.3 g/dl (12.0-15.5); LYMPH # 2.7 10^3/uL (1.5-5.0); MEAN CORPUSCULAR HEMOGLOBIN 27.9 pg (27.0-33.0); MEAN CORPUSCULAR HGB CONC 34.3 g/dl (32.0-36.5); MEAN CORPUSCULAR VOLUME 81.4 fl (80.0-96.0); MONO # 0.6 10^3/uL (0.0-0.8); MONO % 6.1 % (0.0-5.0); NEUTROPHILS # 6.3 10^3/uL (1.5-8.5); NEUTROPHILS % 64.6 % (36.0-66.0); PLATELET COUNT, AUTOMATED 256 10^3/uL (150-450); RED BLOOD COUNT 4.41 10^6/uL (4.00-5.40); WHITE BLOOD COUNT 9.8 10^3/uL (4.0-10.0)
[2019-09-20] MEDS ORDERED: METOCLOPRAMIDE INJ 10MG/2ML VIAL (J2765) IV ONE (12:30)
[2019-09-20] MEDS ORDERED: NS 1,000 ML IV ONE (12:30)
[2019-09-20 13:26] LABS: ALBUMIN 3.1 GM/DL (3.2-5.2); ALT/SGPT 18 U/L (12-78); BILIRUBIN,DIRECT 0.2 MG/DL (0.0-0.2); BILIRUBIN,TOTAL 0.3 MG/DL (0.2-1.0); BLOOD UREA NITROGEN 5 MG/DL (7-18); CALCIUM LEVEL 8.7 MG/DL (8.5-10.1); CARBON DIOXIDE LEVEL 25 MEQ/L (21-32); CHLORIDE LEVEL 105 MEQ/L (98-107); CREATININE FOR GFR 0.56 MG/DL (0.55-1.30); GLOMERULAR FILTRATION RATE > 60.0 (>60); GLUCOSE, FASTING 74 MG/DL (70-100); HCG, SERUM QUANTITATIVE 133971 MIU/ML; LIPASE 182 U/L (73-393); POTASSIUM SERUM 3.9 MEQ/L (3.5-5.1); SODIUM LEVEL 138 MEQ/L (136-145); TOTAL PROTEIN 6.8 GM/DL (6.4-8.2)
--- NOTE | 2019-09-20 13:54 | REP ---
EMERGENCY FIRST TRIMESTER OBSTETRIC SONOGRAPHY: HISTORY: Left pelvic pain. 10 weeks gestation. FINDINGS: Scanning through the gravid uterus demonstrates a single living intrauterine gestation in a free-floating lie. [place]-rump length is 51 mm corresponding to a gestational age estimate of 11 weeks 6 days. heart rate is recorded at 162 beats per minute. No subchorionic hemorrhage is seen. There is a 1.9 cm corpus luteum cyst in the maternal left ovary. No gross abnormality is observed. IMPRESSION: Viable single intrauterine gestation at 11-week 6 days by crown-rump length. BING by today's sonography April 04, 2020. Expected gestational age estimate by prior sonography is 11 weeks 0 days BING by prior sonography April 10, 2020. No complication is appreciated. Electronically Signed by Jamie Schuler MD 09/20/2019 04:12 P
[2019-09-20] MEDS ORDERED: REGL10TA6 PO (14:41)
[2019-09-20] MEDS ORDERED: ONDA4TAB6 PO (14:41)
[2019-09-20] MEDS ORDERED: KEFL500C17 PO (14:47)
[2019-09-20 14:49] VITALS: BP 115/64
== END 2019-09-20 14:51 | disposition home or self-care (01) ==
LOC: M ED 11:38
DX: O23.41 Unspecified infection of urinary tract in pregnancy, first trimester (principal); Z3A.11 11 weeks gestation of pregnancy
CPT/HCPCS: 36415; 76801; 80048; 80076; 81001; 83690; 84702; 85025; 87086; 93976; 96361; 96374; 99284; J2765

== ENCOUNTER → 2019-10-27 | Outpatient (REF) | payer OTHER, MEDICAID ==
[~2019-10-27] MED LIST changes: +KEFL500C17 PO; +ONDA-83; +ONDA4TAB6 PO; +REGL10TA6 PO
== END ==
LOC: M SFHCWAGY 17:02
PROVIDERS: ATTEND Advanced Practice Midwife
DX: R30.0 Dysuria (principal)

== ENCOUNTER → 2019-11-04 | Outpatient (CLI) | payer OTHER ==
--- NOTE | 2019-11-04 12:16 | REP ---
Clinical: Anatomical evaluation. Comparison: 09/20/2019 . Findings: Examination demonstrates a single live intrauterine in transverse (head to maternal left) presentation. motion is identified by technologist. Placenta is noted anterior and grade zero without evidence for placenta previa or abruption. Amniotic fluid volume is normal. Cervix measures 3.1 cm in length and appears closed. No evidence for nuchal cord. Gestational age by first US 17 weeks 3 days with BING 04/10/2020 . Gestational age by current measurements 17 weeks 2 days with BING 04/11/2020 . FHR equals 135 beats per minute. BPD 3.9 cm 17 weeks 6 days HC 14.0 cm 17 weeks 2 days AC 11.5 cm 817 weeks 2 days FL 2.4 cm 17 weeks 2 days HL 2.3 cm 817 weeks 0 days HC/AC ratio 1.22 Estimated weight 188 grams ( 38th percentile). Anatomical assessment demonstrates normal structures including cranium, choroid plexus, cavum, cerebellum/posterior fossa, lungs, four-chamber heart/ventricular outflow tracts, stomach, cord insertion, kidneys/bladder, spine, and extremities. Limited evaluation of the facial features, diaphragm, and three-vessel cord. Impression: Single live intrauterine in transverse lie demonstrating appropriate interval growth from first ultrasound. Anatomical limitations as noted above may warrant reevaluation and follow-up.
== END ==
LOC: M WHC 11:01
PROVIDERS: ATTEND Advanced Practice Midwife
DX: Z36.89 Encounter for other specified antenatal screening (principal); Z3A.17 17 weeks gestation of pregnancy

== ENCOUNTER → 2019-11-13 | Outpatient (REF) | payer OTHER, MEDICAID | LOC: M SFHCWAGY 13:52 | PROVIDERS: ATTEND Advanced Practice Midwife | DX: Z34.82 Encounter for supervision of other normal pregnancy, second trimester (principal) ==

== ENCOUNTER → 2019-11-19 | Outpatient (REF) | payer OTHER, MEDICAID ==
[2019-11-19 17:20] LABS: HEMATOCRIT 32.8 % (36.0-47.0); MEAN CORPUSCULAR HEMOGLOBIN 28.5 pg (27.0-33.0); MEAN CORPUSCULAR HGB CONC 33.5 g/dl (32.0-36.5); PLATELET COUNT, AUTOMATED 222 10^3/uL (150-450); RED BLOOD COUNT 3.86 10^6/uL (4.00-5.40); WHITE BLOOD COUNT 9.9 10^3/uL (4.0-10.0)
[2019-11-19 20:00] LABS: CHLAMYDIA DNA AMPLIFICATION NEGATIVE (NEGATIVE); GC DNA AMPLIFICATION NEGATIVE (NEGATIVE)
[2019-11-20 09:45] LABS: RUBELLA IgG QUALITATIVE IMMUNE (IMMUNE)
[2019-11-21 11:22] LABS: HEPATITIS B SURFACE ANTIGEN NEGATIVE (NEGATIVE); HEPATITIS C VIRUS ABY INDEX < 0.0 INDEX (<0.8); HIV 1&2 SCREEN CENTAUR NEGATIVE (NEGATIVE)
== END ==
LOC: M PLALAB 15:37
PROVIDERS: ATTEND Advanced Practice Midwife
DX: Z34.82 Encounter for supervision of other normal pregnancy, second trimester (principal)

== ENCOUNTER → 2019-11-20 | Outpatient (CLI) | payer OTHER ==
--- NOTE | 2019-11-20 12:42 | REP ---
Obstetric sonography: History: Supervision of followup anatomy. Findings: Scanning demonstrates a viable single intrauterine gestation in a variable lie. motion is observed and heart rate is recorded at 158 beats per minute. Amniotic fluid is subjectively normal. Closed cervical length measured transabdominally is 3.6 cm. There has been appropriate interval growth. No anomaly is seen. The following anatomic structures are identified today and felt to be sonographically unremarkable: cranium, choroid plexus, cavum, cerebellum and posterior fossa, nuchal fold, face and profile, four-chamber heart, diaphragm, left-sided stomach, abdominal wall cord insertion, three-vessel cord, kidneys and bladder, spine. In conjunction with prior sonography, anatomic survey is felt to be complete. Biometry chart: BPD 4.3 cm = 18 weeks 6 days Head circumference 16.2 cm = 19 weeks 0 days Abdominal circumference 13.8 cm = 19 weeks 1 day Femur length 3.2 cm = 20 weeks 0 days Humeral length 3.2 cm = 20 weeks 3 days HC/AC ratio normal 1.17. Cephalic index normal 0.72. Estimated weight 297 grams, 0 pounds 10 ounces, 38th percentile for 19 weeks 5 days. Impression: Viable single intrauterine gestation at 19 weeks 1 day by today's composite sonographic criteria. Expected gestational age estimate based on prior sonography is 19 weeks 5 days. BING by prior sonography April 10, 2020. In conjunction with the prior study, anatomic survey is felt to be complete.
== END ==
LOC: M WHC 10:09
PROVIDERS: ATTEND Advanced Practice Midwife
DX: Z36.2 Encounter for other antenatal screening follow-up (principal); Z3A.19 19 weeks gestation of pregnancy

== ENCOUNTER → 2020-01-15 | Outpatient (REF) | payer OTHER, MEDICAID ==
[2020-01-15 15:41] LABS: HEMATOCRIT 34.7 % (36.0-47.0); HEMOGLOBIN 11.5 g/dl (12.0-15.5); MEAN CORPUSCULAR HEMOGLOBIN 28.3 pg (27.0-33.0); MEAN CORPUSCULAR HGB CONC 33.1 g/dl (32.0-36.5); MEAN CORPUSCULAR VOLUME 85.5 fl (80.0-96.0); PLATELET COUNT, AUTOMATED 214 10^3/uL (150-450); RED BLOOD COUNT 4.06 10^6/uL (4.00-5.40); WHITE BLOOD COUNT 10.4 10^3/uL (4.0-10.0)
== END ==
LOC: M PLALAB 11:53
PROVIDERS: ATTEND Advanced Practice Midwife
DX: Z34.82 Encounter for supervision of other normal pregnancy, second trimester (principal)

== ENCOUNTER → 2020-01-23 | Outpatient (REF) | payer OTHER, MEDICAID ==
[2020-01-23 20:47] LABS: CHLAMYDIA DNA AMPLIFICATION NEGATIVE (NEGATIVE); GC DNA AMPLIFICATION NEGATIVE (NEGATIVE)
== END ==
LOC: M SFHCWAGY 17:48
PROVIDERS: ATTEND Nurse Practitioner Women's Health
DX: Z11.3 Encounter for screening for infections with a predominantly sexual mode of transmission (principal); N94.10 Unspecified dyspareunia

== ENCOUNTER → 2020-03-23 | Outpatient (REF) | payer OTHER, MEDICAID ==
[~2020-03-23] MED LIST changes: +CYCL-707 PO
== END ==
LOC: M PLALAB 12:00
PROVIDERS: ATTEND Advanced Practice Midwife
DX: Z34.83 Encounter for supervision of other normal pregnancy, third trimester (principal)

== ENCOUNTER 2020-04-02 23:33 | Inpatient (IN) | payer OTHER, MEDICAID ==
[~2020-04-02] VITALS: Ht 165.1 cm; Wt 91.1 kg
[2020-04-03] VITALS (27 sets, daily range): BP systolic 105–157; BP diastolic 56–85
[2020-04-03] MEDS ORDERED: LACTATED RINGER'S 1000 ML IV STA (00:31)
[2020-04-03] MEDS ORDERED: LR 1,000 ML IV SCH (00:31)
[2020-04-03] MEDS ORDERED: OXYTOCIN DRIP 30 UNITS in IV 1 EA IV SCH (00:45)
[2020-04-03 01:01] LABS: HEMATOCRIT 33.1 % (36.0-47.0); MEAN CORPUSCULAR HEMOGLOBIN 26.6 pg (27.0-33.0); MEAN CORPUSCULAR HGB CONC 33.2 g/dl (32.0-36.5); MEAN CORPUSCULAR VOLUME 80.1 fl (80.0-96.0); PLATELET COUNT, AUTOMATED 161 10^3/uL (150-450); RED BLOOD COUNT 4.13 10^6/uL (4.00-5.40); WHITE BLOOD COUNT 9.5 10^3/uL (4.0-10.0)
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
[2020-04-03] MEDS ORDERED: FENTANYL 2MCG/ML ROPIVACAINE 0.2% IN 0.9% NACL 100ML IVBAG As Ordered ONE (01:09)
[2020-04-03] MEDS ORDERED: OXYTOCIN 30 UNITS IN 0.9% NaCl 500ML IV BAG (J2590) As Ordered ONE (03:22)
[2020-04-03] MEDS ORDERED: ePHEDrine SULFATE 25 MG/5 ML(5MG/ML) SYRINGE IV PRN (03:30)
[2020-04-03] MEDS ORDERED: LACTATED RINGER'S 1000 ML IV PRN (03:30)
[2020-04-03] MEDS ORDERED: ONDANSETRON 4MG/2ML VIAL IV PRN (03:30)
[2020-04-03] MEDS ORDERED: EPIDURAL COMMENT XX SCH (03:30)
[2020-04-03] MEDS ORDERED: REFRIGERATOR IV KEYS XX PRN (03:30)
[2020-04-03] MEDS ORDERED: EPIDURAL/PCA KEYS XX PRN (03:30)
[2020-04-03] MEDS ORDERED: FENTANYL/ROPIVACAINE/NACL BAG 100 ML EPIDURAL SCH (03:30)
[2020-04-03] MEDS ORDERED: diphenhydrAMINE 50MG/ML VIAL (J1200) IV PRN (03:30)
[2020-04-03] MEDS ORDERED: NALOXONE INJ 0.4MG/1ML VIAL (J2310 PER 1MG) IV PRN (03:30)
[2020-04-03] MEDS ORDERED: IBUPROFEN 600MG TAB PO PRN (04:00)
[2020-04-03] MEDS ORDERED: METHYLERGONOVINE MALEATE 0.2 MG TAB PO PRN (04:00)
[2020-04-03] MEDS ORDERED: DOCUSATE SODIUM 100 MG CAP PO PRN (04:00)
[2020-04-03] MEDS ORDERED: ACETAMINOPHEN TAB 650MG DOSE (2X325MG) PO PRN (04:00)
[2020-04-03] MEDS ORDERED: DIBUCAINE 1% OINTMENT 30GM TOP PRN (04:00)
[2020-04-03] MEDS ORDERED: ANUSOL HC CREAM 30GM TOP PRN (04:00)
[2020-04-03] MEDS ORDERED: ACETAMINOPHEN 500 MG TAB PO PRN (04:00)
[2020-04-03] MEDS ORDERED: RHOGAM 300 MCG (1500 IU) INJ (J2790) IM SCH (04:00)
[2020-04-03] MEDS ORDERED: MEASLES,MUMPS,RUBELLA VACCINE INJ (MMR-II) (90707) SC SCH (04:00)
[2020-04-03] MEDS ORDERED: MOM 30ML SUSPENSION UDC PO PRN (04:00)
--- NOTE | 2020-04-03 04:06 | DNPDOC ---
[facility] Delivery Note Delivery Note DATE OF DELIVERY: 04/03/2020 PREDELIVERY DIAGNOSIS: 39+0/7 weeks' gestation and labor. POST DELIVERY DIAGNOSIS: Delivered. PROCEDURE: Spontaneous vaginal delivery. PROVIDER: Michelle Masterson CNM ANESTHESIA: Epidural. ESTIMATED BLOOD LOSS: 100 mL. FINDINGS: 7 pound 2 ounce, 3230gm female infant, Score 8/9, no nuchal cord. DELIVERY SUMMARY: Patient is a 24-year-old 2 now para 2-0-0-2 who was admitted to labor and delivery for spontaneously ruptured membranes. She utilized an epidural for labor coping. Fully dilated 0325. Viable female deliv ered SHAE 0335. Spontaneous respirations with stimulation, transitioned on maternal abdomen. Cord doubly clamped and cut by FOB under my direction once pulsations ceased. Apgars 8/9. Placenta jimenez, intact with 3v cord @ 0341. Fundus firmed with massage and IV pitocin bolus. Cervix, vagina and perineum intact. EBL 100ml. Parents are naming their daughter Preeti. Michelle Masterson CNM Apr 03, 2020 04:06
[2020-04-03] MEDS: PRENATAL VITAMINS CHEWABLE TABLET PO SCH (07:30)
[2020-04-03] MEDS: IBUPROFEN 800 MG TAB PO PRN ×2 (07:30→15:24)
[2020-04-04 05:47] VITALS: BP 116/59
[2020-04-04] MEDS: PRENATAL VITAMINS CHEWABLE TABLET PO SCH (08:03)
[2020-04-04] MEDS: IBUPROFEN 800 MG TAB PO PRN (08:04)
== END 2020-04-04 18:30 | disposition home or self-care (01) | DRG 560 ==
LOC: M LDO 23:33 → M LDI 04-03 00:55 → M OBS 04-03 06:33
PROVIDERS: ADMIT Advanced Practice Midwife; ATTEND Advanced Practice Midwife
PROC: 10E0XZZ Delivery of Products of Conception, External Approach (ICD-10-PCS; principal; 2020-04-03)
DX: O42.02 Full-term premature rupture of membranes, onset of labor within 24 hours of rupture (principal); Z37.0 Single live birth; Z3A.39 39 weeks gestation of pregnancy

== ENCOUNTER 2020-08-27 15:18 | Emergency (ER) | payer MEDICAID, OTHER ==
[~2020-08-27] VITALS: Ht 165.1 cm; Wt 83.8 kg
[2020-08-27] MEDS ORDERED: ONDANSETRON 4MG/2ML VIAL IV ONE (16:15)
[2020-08-27] MEDS ORDERED: NS 1,000 ML IV ONE (16:15)
[2020-08-27 17:12] LABS: BASO % 0.3 % (0.0-1.0); EOS % 0.2 % (0.0-3.0); HEMATOCRIT 41.4 % (36.0-47.0); HEMOGLOBIN 13.7 g/dl (12.0-15.5); LYMPH # 1.9 10^3/uL (1.5-5.0); LYMPH % 19.2 % (24.0-44.0); MEAN CORPUSCULAR HGB CONC 33.1 g/dl (32.0-36.5); MEAN CORPUSCULAR VOLUME 81.5 fl (80.0-96.0); MONO # 0.7 10^3/uL (0.0-0.8); MONO % 6.8 % (0.0-5.0); NEUTROPHILS # 7.1 10^3/uL (1.5-8.5); NEUTROPHILS % 73.2 % (36.0-66.0); PLATELET COUNT, AUTOMATED 216 10^3/uL (150-450); RED BLOOD COUNT 5.08 10^6/uL (4.00-5.40); WHITE BLOOD COUNT 9.7 10^3/uL (4.0-10.0)
[2020-08-27 17:13] LABS: INR 1.02; PROTHROMBIN TIME 13.6 SECONDS (12.5-14.3)
[2020-08-27 18:00] LABS: ALT/SGPT 30 U/L (12-78); AMYLASE 42 U/L (25-115); BILIRUBIN,DIRECT < 0.1 MG/DL (0.0-0.2); BILIRUBIN,TOTAL 0.5 MG/DL (0.2-1.0); BLOOD UREA NITROGEN 8 MG/DL (7-18); CALCIUM LEVEL 9.2 MG/DL (8.5-10.1); CARBON DIOXIDE LEVEL 25 MEQ/L (21-32); CHLORIDE LEVEL 102 MEQ/L (98-107); CREATININE FOR GFR 0.74 MG/DL (0.55-1.30); GLOMERULAR FILTRATION RATE > 60.0 (>60); GLUCOSE, FASTING 66 MG/DL (70-100); HCG, SERUM QUANTITATIVE 77236 MIU/ML; LIPASE 70 U/L (73-393); POTASSIUM SERUM 5.7 MEQ/L (3.5-5.1); SODIUM LEVEL 131 MEQ/L (136-145); TOTAL PROTEIN 8.4 GM/DL (6.4-8.2)
[2020-08-27] MEDS ORDERED: ZOFR4TAB16 PO (18:32)
[2020-08-27 18:41] VITALS: BP 113/58
== END 2020-08-27 18:46 | disposition home or self-care (01) ==
LOC: M ED 15:18
DX: O21.8 Other vomiting complicating pregnancy (principal); Z3A.08 8 weeks gestation of pregnancy
CPT/HCPCS: 36415; 80048; 80076; 81001; 82150; 83690; 84702; 85025; 85610; 86850; 86900; 86901; 96361; 96374; 99284; J2405

== ENCOUNTER → 2020-09-24 | Outpatient (REF) | payer OTHER, MEDICAID ==
[~2020-09-24] MED LIST changes: +ZOFR4TAB16 PO
[2020-09-24 21:06] LABS: CHLAMYDIA DNA AMPLIFICATION NEGATIVE (NEGATIVE); GC DNA AMPLIFICATION NEGATIVE (NEGATIVE)
== END ==
LOC: M PLALAB 14:42
PROVIDERS: ATTEND Obstetrics & Gynecology
DX: O99.891 Other specified diseases and conditions complicating pregnancy (principal); N89.8 Other specified noninflammatory disorders of vagina; Z63.9 Problem related to primary support group, unspecified; Z3A.12 12 weeks gestation of pregnancy

== ENCOUNTER → 2020-10-20 | Outpatient (REF) | payer OTHER, MEDICAID | LOC: M PLALAB 14:07 | PROVIDERS: ATTEND Obstetrics & Gynecology | DX: O23.41 Unspecified infection of urinary tract in pregnancy, first trimester (principal) ==

== ENCOUNTER → 2020-10-22 | Outpatient (REF) | payer OTHER, MEDICAID ==
[2020-10-22 16:58] LABS: HEMATOCRIT 38.9 % (36.0-47.0); HEMOGLOBIN 13.1 g/dl (12.0-15.5); MEAN CORPUSCULAR HEMOGLOBIN 27.5 pg (27.0-33.0); MEAN CORPUSCULAR HGB CONC 33.7 g/dl (32.0-36.5); MEAN CORPUSCULAR VOLUME 81.6 fl (80.0-96.0); PLATELET COUNT, AUTOMATED 251 10^3/uL (150-450); RED BLOOD COUNT 4.77 10^6/uL (4.00-5.40); WHITE BLOOD COUNT 9.8 10^3/uL (4.0-10.0)
[2020-10-22 18:04] LABS: HEPATITIS C VIRUS ABY INDEX < 0.0 INDEX (<0.8); HIV 1&2 SCREEN CENTAUR NEGATIVE (NEGATIVE)
== END ==
LOC: M PLALAB 14:26
PROVIDERS: ATTEND Obstetrics & Gynecology
DX: Z3A.12 12 weeks gestation of pregnancy (principal)

== ENCOUNTER → 2020-11-12 | Outpatient (CLI) | payer OTHER, MEDICAID ==
--- NOTE | 2020-11-12 17:05 | REP ---
INDICATION: ANATOMY. COMPARISON: None. TECHNIQUE: Real-time sonographic evaluation of the gravid uterus performed. FINDINGS: Estimated gestational age is18 weeks 4 days, EDC 04/11/2021. Presentation: Cephalic Placenta posterior, grade 1, without evidence of placenta previa. heart rate is recorded at 146 beats per minute. Amniotic fluid is subjectively normal. Closed cervical length is measured at 3.1 cm. Biometry chart: BPD: 41 mm, 18 weeks 3 days, 45th percentile. HC: 150 mm, 18 weeks 0 days, 34th percentile AC: 126 mm, 18 weeks 2 days, 42nd percentile Femur length: 29 mm, 18 weeks 6 days, 58th percentile HC to AC ratio: 1.18, normal range 1.07-1.26. Estimated weight: 242g, 40th percentile. anatomy: Cranium: Grossly normal Lateral Ventricles/Choroid Plexus: Grossly normal Posterior Fossa/Cerebellum: Grossly normal Nose/lips/profile: Grossly normal Four chamber heart: Not well seen due to position Right ventricular outflow tract: Not well seen due to position Left ventricular outflow tract: Grossly normal Left-sided stomach: Grossly normal Kidneys: Grossly normal Bladder: Grossly normal Cord Insertion: Grossly normal 3 vessel cord: Grossly normal Spine: Grossly normal IMPRESSION: Viable single intrauterine gestation as above. Four-chamber heart and right ventricular outflow tract not well seen due to position. <Electronically signed by Aubrey Chinchilla > 11/12/20 [id number]
== END ==
LOC: M WHC 12:58
PROVIDERS: ATTEND Obstetrics & Gynecology
DX: Z34.92 Encounter for supervision of normal pregnancy, unspecified, second trimester (principal); Z3A.18 18 weeks gestation of pregnancy

== ENCOUNTER → 2020-11-17 | Outpatient (REF) | payer OTHER, MEDICAID | LOC: M PLALAB 00:59 | PROVIDERS: ATTEND Obstetrics & Gynecology | DX: Z3A.20 20 weeks gestation of pregnancy (principal); Z53.9 Procedure and treatment not carried out, unspecified reason ==

== ENCOUNTER → 2020-11-19 | Outpatient (REF) | payer OTHER, MEDICAID | LOC: M SFHCWAGY 16:49 | PROVIDERS: ATTEND Obstetrics & Gynecology | DX: Z34.92 Encounter for supervision of normal pregnancy, unspecified, second trimester (principal); Z3A.20 20 weeks gestation of pregnancy ==

== ENCOUNTER → 2020-12-16 | Outpatient (REF) | payer OTHER, MEDICAID | LOC: M PLALAB 16:43 | PROVIDERS: ATTEND Obstetrics & Gynecology | DX: Z36.89 Encounter for other specified antenatal screening (principal); Z3A.24 24 weeks gestation of pregnancy ==

== ENCOUNTER → 2020-12-20 | Outpatient (CLI) | payer OTHER ==
--- NOTE | 2020-12-21 10:48 | REP ---
INDICATION: F/U ANATOMY COMPARISON: 11/12/2020 TECHNIQUE: Transabdominal obstetrical ultrasound with color Doppler evaluation. FINDINGS: Examination demonstrates a single live intrauterine in cephalic presentation. motion is identified by technologist. Placenta is noted posterior and grade 1 without evidence for placenta previa or abruption. Amniotic fluid volume is normal. Cervix measures 4.0 cm in length and appears closed.. Gestational age by LMP and 1st U/S 24 weeks 0 days with BING 04/11/2021. Gestational age by current measurements 24 weeks 0 days with BING 04/11/2021. FHR equals 142 beats per minute. Estimated weight 655 grams (43rdpercentile). IMPRESSION: Single live intrauterine in cephalic presentation demonstrating appropriate estimated weight and growth. In conjunction with prior examination anatomical assessment is complete and normal. <Electronically signed by Jurgen Dejesus > 12/21/20 [id number]
== END ==
LOC: M WHC 14:40
PROVIDERS: ATTEND Obstetrics & Gynecology
DX: Z34.82 Encounter for supervision of other normal pregnancy, second trimester (principal)

== ENCOUNTER → 2020-12-20 | Outpatient (REF) | payer OTHER | LOC: M SFHCWAGY 17:00 | PROVIDERS: ATTEND Obstetrics & Gynecology | DX: Z36.89 Encounter for other specified antenatal screening (principal); Z3A.24 24 weeks gestation of pregnancy ==

== ENCOUNTER → 2021-02-16 | Outpatient (REF) | payer OTHER, MEDICAID ==
[2021-02-16 17:57] LABS: HEMOGLOBIN 9.7 g/dl (12.0-15.5); MEAN CORPUSCULAR HEMOGLOBIN 25.7 pg (27.0-33.0); MEAN CORPUSCULAR HGB CONC 31.3 g/dl (32.0-36.5); PLATELET COUNT, AUTOMATED 166 10^3/uL (150-450); RED BLOOD COUNT 3.78 10^6/uL (4.00-5.40); WHITE BLOOD COUNT 7.1 10^3/uL (4.0-10.0)
== END ==
LOC: M PLALAB 13:42
PROVIDERS: ATTEND Obstetrics & Gynecology
DX: Z36.89 Encounter for other specified antenatal screening (principal); Z3A.24 24 weeks gestation of pregnancy

== ENCOUNTER 2021-02-27 18:39 | Outpatient (CLI) | payer OTHER, MEDICAID ==
[~2021-02-27] VITALS: Ht 165.1 cm; Wt 94.8 kg
[2021-02-27 19:24] VITALS: BP 109/52
[2021-02-27 20:48] VITALS: BP 124/60
--- NOTE | 2021-02-27 21:04 | IPNPDOC ---
Text Note Date of Service The patient was seen on 02/27/21. NOTE Triage Note Neva is a 25yo with SIUP at 34w3d presenting to triage with CC of pelvic discomfort and concern that baby is ok. Normal movement, but she would like reassurance. No ctx pattern. No LOF. No vaginal bleeding. 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 Vitals wnl, afebrile Gen: WDWN, resting comfortably in bed in NAD Abdomen: gravid, NTTP, soft Extremities: no edema of BLE SCE: closed/thick/high TAUS: SIUP with cephalic presentation, +FCA, +FM, MAYELIN 12cm, posterior placenta Cat I-II FHRT for min-mod malia, no decels, +accels, bl 120's. Resolved to Cat I with hydration. Assessment: Neva is a 25yo with SIUP at 34w3d with reassuring assessment, no e/o labor. Reassuring status. Vitals wnl, benign exam. She has prior dx pubic diastasis, no e/o of any other pathology. Plan: -Safe for d/c home -Provided reassurance -Discussed good hydration -Reiterated avoiding movements that exacerbate the discomfort of pubic diastasis -Keep next routine office visit on 17 March Tori Connelly MD VS,Anton, I+O Anton HENDERSON, I+O Vital Signs Date Time Temp Pulse Resp B/P (MAP) Pulse Ox O2 Delivery O2 Flow Rate FiO2 02/27/21 19:24 98.4 100 109/52 (71) Tori Connelly MD Feb 27, 2021 21:04
== END 2021-02-27 21:00 | disposition home or self-care (01) ==
LOC: M LDO 18:39
PROVIDERS: ATTEND Obstetrics & Gynecology
DX: O26.713 Subluxation of symphysis (pubis) in pregnancy, third trimester (principal); Z3A.34 34 weeks gestation of pregnancy

== ENCOUNTER 2021-03-29 13:39 | Inpatient (IN) | payer OTHER, MEDICAID ==
[~2021-03-29] VITALS: Ht 165.1 cm; Wt 89.2 kg
[2021-03-29] VITALS (20 sets, daily range): BP systolic 97–137; BP diastolic 53–81
[2021-03-29] MEDS ORDERED: PENICILLIN G POTASSIUM IV 5 MU in D5W MINI-BAG PLUS 100 ML IV STA (14:27)
[2021-03-29 15:43] LABS: HEMATOCRIT 31.1 % (36.0-47.0); HEMOGLOBIN 9.9 g/dl (12.0-15.5); MEAN CORPUSCULAR HEMOGLOBIN 24.8 pg (27.0-33.0); MEAN CORPUSCULAR HGB CONC 31.8 g/dl (32.0-36.5); MEAN CORPUSCULAR VOLUME 77.9 fl (80.0-96.0); PLATELET COUNT, AUTOMATED 118 10^3/uL (150-450); RED BLOOD COUNT 3.99 10^6/uL (4.00-5.40); WHITE BLOOD COUNT 6.8 10^3/uL (4.0-10.0)
[2021-03-29] MEDS ORDERED: LR 1,000 ML IV ONE (17:59)
[2021-03-29] MEDS ORDERED: FENTANYL 2MCG/ML ROPIVACAINE 0.2% IN 0.9% NACL 100ML IVBAG As Ordered ONE (18:23)
--- NOTE | 2021-03-29 18:40 | HPEPDOC ---
Obstetrical History & Physical General Date of Admission Mar 29, 2021 at 14:25 History of Present Illness 25 yo at 38 5/7 weeks by LMP c/w 11 week ultrasouond (EDC=04/07/2021) presents with regular contractions for the last several hours. Extractions increased in intensity. Good movement. 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 BREAST: . ABDOMEN: Gravid and non-tender to touch. FETUS: Is vertex (VTX) by sterile vaginal examination (SVE), fetus is vertex (VTX) by Macho. HEART RATE: Regular rate and rhythm. LUNGS: Clear to auscultation (CTA). EXTREMITIES: No edema. No clonus. Deep tendon reflexes (DTRs) + . Vital Signs/I&O Vital Signs Date Time Temp Pulse Resp B/P (MAP) Pulse Ox O2 Delivery O2 Flow Rate FiO2 03/29/21 17:07 97.2 90 16 125/69 (87) Laboratory Data 24H LABS Laboratory Tests 2 03/29/21 14:40: Serology Scanned Report Hepatitis B Testing 03/29/21 14:45: Nucleated Red Blood Cells % (auto) 0.0, Syphilis Serology NONREACTIVE CBC/BMP Laboratory Tests 03/29/21 14:45 Pertinent Laboratoy Data Blood Type: O+ Vaginal Examination Dilation: 4 cm Effacement: 90% Station: -2 Cervical Consistency: Soft Cervical Position: Posterior Presentation: Cephalic presentation Assessment Variability: Moderate Accelerations: Positive Decelerations: None Tocometer Contractions: Yes Frequency: regular Strength: palpated as moderate Assessment/Plan Assessment Pt is a 25-year-old (G)3 para (P)2 at 38+5 weeks by LMP c/w 11-week ultrasound (EDC+04/07/2021) presents in early labor 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 Group B Streptococcus (GBS) unknown: Plan to treat with antibiotics Labs and intravenous (IV) per unit protocol. Anticipate [normal spontaneous delivery (). C-S as appropriate. SURENDRA MORAES MD Mar 29, 2021 18:40
[2021-03-29] MEDS ORDERED: LR 1,000 ML IV SCH (19:05)
[2021-03-29] MEDS ORDERED: diphenhydrAMINE 50MG/ML VIAL (J1200) IV PRN (19:20)
[2021-03-29] MEDS ORDERED: EPIDURAL COMMENT XX SCH (19:20)
[2021-03-29] MEDS ORDERED: EPIDURAL/PCA KEYS XX PRN (19:20)
[2021-03-29] MEDS ORDERED: REFRIGERATOR IV KEYS XX PRN (19:20)
[2021-03-29] MEDS ORDERED: ONDANSETRON 4MG/2ML VIAL IV PRN ×2 (19:20→21:55)
[2021-03-29] MEDS ORDERED: ePHEDrine SULFATE 25 MG/5 ML(5MG/ML) SYRINGE IV PRN (19:20)
[2021-03-29] MEDS ORDERED: NALOXONE INJ 0.4MG/1ML VIAL (J2310 PER 1MG) IV PRN (19:20)
[2021-03-29] MEDS ORDERED: LACTATED RINGER'S 1000 ML IV PRN (19:20)
[2021-03-29] MEDS ORDERED: FENTANYL/ROPIVACAINE/NACL BAG 100 ML EPIDURAL SCH (19:20)
[2021-03-29] MEDS ORDERED: OXYTOCIN DRIP 30 UNITS in IV 1 EA IV SCH (19:35)
[2021-03-29] MEDS ORDERED: PENICILLIN G POTASSIUM IV 2.5 MU in IV 1 EA IV SCH (19:39)
[2021-03-29] MEDS ORDERED: DOCUSATE SODIUM 100MG CAPSULE PO PRN (21:55)
[2021-03-29] MEDS ORDERED: OXYTOCIN DRIP 30 UNITS in IV 1 EA IV ONE (21:55)
[2021-03-29] MEDS ORDERED: RHOGAM 300 MCG (1500 IU) INJ (J2790) IM SCH (21:55)
[2021-03-29] MEDS ORDERED: METHYLERGONOVINE MALEATE 0.2 MG TAB PO PRN (21:55)
[2021-03-29] MEDS ORDERED: IBUPROFEN 600MG TAB PO PRN (21:55)
[2021-03-29] MEDS ORDERED: MEASLES,MUMPS,RUBELLA VACCINE INJ (MMR-II) (90707) SC SCH (21:55)
[2021-03-29] MEDS ORDERED: ACETAMINOPHEN TAB 650MG DOSE (2X325MG) PO PRN (21:55)
--- NOTE | 2021-03-29 22:33 | DNPDOC ---
[facility] Delivery Note Delivery Note DATE OF DELIVERY: March 29, 2021 PREDELIVERY DIAGNOSIS: 38-5/7 weeks' gestation and labor. POST DELIVERY DIAGNOSIS: Delivered. PROCEDURE: Spontaneous vaginal delivery. FINGERPRINTER: Dr. Surendra Moraes MD ANESTHESIA: Epidural ESTIMATED BLOOD LOSS: 3 mL. FINDINGS: 7 pound 12 ounce male , Score 8/9, nuchal cord times 1. DELIVERY SUMMARY: Patient is a25]-year-old 3 now para 3 who was admitted for early labor. She progressed naturally. She eventually received epidural anesthesia. She required a small amount of Pitocin augmentation. She had assisted rupture of membranes. After 10 minutes second stage of labor she had spontaneous vaginal delivery of a 7 pound 12 ounce male . Nuchal cord x1 delivered through. The shoulders delivered with ease. The was handed to the mother. The cord was doubly clamped and cut. The placenta delivered spontaneously and appeared to be intact. The patient received IV Pitocin immediately after delivery of the placenta. There were no vaginal lacerations present. Sponge counts were correct. SURENDRA MORAES MD Mar 29, 2021 22:33
[2021-03-30 00:55] VITALS: BP 131/69
[2021-03-30] MEDS: ACETAMINOPHEN 500 MG TAB PO PRN ×2 (01:00→15:49)
[2021-03-30 06:11] VITALS: BP 126/59
[2021-03-30] MEDS: PRENATAL VITAMINS CHEWABLE TABLET PO SCH (08:38)
[2021-03-30] MEDS: IBUPROFEN 800 MG TAB PO PRN ×2 (08:39→19:45)
[2021-03-30 18:00] VITALS: BP 120/60
[2021-03-31] MEDS: ACETAMINOPHEN 500 MG TAB PO PRN (01:41)
[2021-03-31 06:00] VITALS: BP 111/64
[2021-03-31] MEDS ORDERED: medroxyPROGESTERone ACET IM SUSP 150 MG/ML VIAL (J1050) IM SCH (07:00)
[2021-03-31] MEDS: IBUPROFEN 800 MG TAB PO PRN (08:28)
[2021-03-31] MEDS: PRENATAL VITAMINS CHEWABLE TABLET PO SCH (08:28)
== END 2021-03-31 12:49 | disposition home or self-care (01) | DRG 560 ==
LOC: M LDO 13:39 → M LDI 14:25 → M OBS 03-30 00:41
PROVIDERS: ADMIT Specialist; ATTEND Specialist
PROC: 10E0XZZ Delivery of Products of Conception, External Approach (ICD-10-PCS; principal; 2021-03-29)
PROC: 10907ZC Drainage of Amniotic Fluid, Therapeutic from Products of Conception, Via Natural or Artificial Opening (ICD-10-PCS; 2021-03-29)
DX: O69.81X0 Labor and delivery complicated by cord around neck, without compression, not applicable or unspecified (principal); Z3A.38 38 weeks gestation of pregnancy; Z37.0 Single live birth

== ENCOUNTER → 2021-09-28 | Outpatient (CLI) | payer OTHER | LOC: M LABSMTC 13:43 | PROVIDERS: ATTEND Pediatrics | DX: Z11.52 Encounter for screening for COVID-19 (principal); Z20.822 Contact with and (suspected) exposure to COVID-19 ==

== ENCOUNTER → 2021-11-03 | Outpatient (CLI) | payer OTHER | LOC: M LABSMTC 13:04 | PROVIDERS: ATTEND Pediatrics | DX: Z11.52 Encounter for screening for COVID-19 (principal); U07.1 COVID-19 | CPT/HCPCS: C9803; U0003 ==

== ENCOUNTER 2023-01-01 12:07 | Emergency (ER) | payer MEDICAID, OTHER ==
[~2023-01-01] VITALS: Ht 165.1 cm; Wt 101.0 kg
[~2023-01-01 12:07] MED LIST changes: -DOXY-350 PO; +DOXY-444 PO
[2023-01-01 15:28] LABS: BASO % 0.2 % (0.0-1.0); EOS # 0.1 10^3/uL (0.0-0.5); EOS % 1.1 % (0.0-3.0); HEMATOCRIT 43.3 % (36.0-47.0); HEMOGLOBIN 14.6 g/dl (12.0-15.5); LYMPH # 3.1 10^3/uL (1.5-5.0); LYMPH % 36.4 % (24.0-44.0); MEAN CORPUSCULAR HEMOGLOBIN 28.7 pg (27.0-33.0); MEAN CORPUSCULAR HGB CONC 33.7 g/dl (32.0-36.5); MEAN CORPUSCULAR VOLUME 85.2 fl (80.0-96.0); MONO # 0.5 10^3/uL (0.0-0.8); MONO % 6.2 % (2.0-8.0); NEUTROPHILS # 4.7 10^3/uL (1.5-8.5); NEUTROPHILS % 55.2 % (36.0-66.0); PLATELET COUNT, AUTOMATED 230 10^3/uL (150-450); RED BLOOD COUNT 5.08 10^6/uL (4.00-5.40); WHITE BLOOD COUNT 8.6 10^3/uL (4.0-10.0)
[2023-01-01 15:55] LABS: HCG, SERUM QUANTITATIVE < 2.6 MIU/ML (<4.2); LIPASE 28 U/L (12-53)
[2023-01-01 15:58] LABS: ALBUMIN 4.2 G/DL (3.2-5.2); ALKALINE PHOSPHATASE 79 U/L (46-116); ALT/SGPT 65 U/L (7.0-40); AST/SGOT 38 U/L (<34); BILIRUBIN,DIRECT 0.1 MG/DL (<0.4); BILIRUBIN,TOTAL 0.4 MG/DL (0.3-1.2); BLOOD UREA NITROGEN 11 MG/DL (9-23); CALCIUM LEVEL 9.1 MG/DL (8.5-10.1); CARBON DIOXIDE LEVEL 29 MMOL/L (20-31); CHLORIDE LEVEL 104 MMOL/L (98-107); CREATININE FOR GFR 0.63 MG/DL (0.55-1.30); GLOMERULAR FILTRATION RATE > 60.0 (>60); GLUCOSE, FASTING 73 MG/DL (60-100); POTASSIUM SERUM 4.2 MMOL/L (3.5-5.1); SODIUM LEVEL 139 MMOL/L (136-145); TOTAL PROTEIN 7.7 G/DL (5.7-8.2)
[2023-01-01 16:32] LABS: GC DNA AMPLIFICATION NEGATIVE (NEGATIVE)
[2023-01-01] MEDS ORDERED: FLAG375C PO (17:43)
[2023-01-01 18:11] VITALS: BP 127/80
== END 2023-01-01 18:14 | disposition home or self-care (01) ==
LOC: M ED 12:07
DX: N76.0 Acute vaginitis (principal); F41.9 Anxiety disorder, unspecified; F32.9 Major depressive disorder, single episode, unspecified

== ENCOUNTER → 2023-01-03 | Outpatient (REF) | payer OTHER, MEDICAID ==
[~2023-01-03] MED LIST changes: +FLAG375C PO
== END ==
LOC: M PLALAB 09:45
PROVIDERS: ATTEND Nurse Practitioner Family
DX: R39.15 Urgency of urination (principal); R30.0 Dysuria; Z53.8 Procedure and treatment not carried out for other reasons

== ENCOUNTER → 2023-01-24 | Outpatient (REF) | payer OTHER, MEDICAID | LOC: M SFHCWAGY 13:10 | PROVIDERS: ATTEND Nurse Practitioner Family | DX: Z12.4 Encounter for screening for malignant neoplasm of cervix (principal); R87.613 High grade squamous intraepithelial lesion on cytologic smear of cervix (HGSIL); R87.810 Cervical high risk human papillomavirus (HPV) DNA test positive ==

== ENCOUNTER → 2023-02-13 | Outpatient (REF) | payer OTHER, MEDICAID ==
[~2023-02-13] MED LIST changes: +HYDR-3713 PO
== END ==
LOC: M SFHCWAGY 15:39
PROVIDERS: ATTEND Specialist
DX: R87.613 High grade squamous intraepithelial lesion on cytologic smear of cervix (HGSIL) (principal)

== ENCOUNTER 2023-02-16 06:04 | Emergency (ER) | payer MEDICAID, OTHER ==
[~2023-02-16] VITALS: Ht 165.1 cm; Wt 99.1 kg
[~2023-02-16 06:04] MED LIST changes: -HYDR-3713 PO
[2023-02-16] MEDS ORDERED: HYDR-3713 PO (09:03)
[2023-02-16 09:27] VITALS: BP 126/84
[2023-02-16] MEDS ORDERED: ONDA4TAB6 PO (09:39)
== END 2023-02-16 09:39 | disposition home or self-care (01) ==
LOC: M ED 06:04
DX: K08.89 Other specified disorders of teeth and supporting structures (principal); K03.81 Cracked tooth; F17.200 Nicotine dependence, unspecified, uncomplicated

== ENCOUNTER → 2023-04-05 | Outpatient (REF) | payer OTHER, MEDICAID ==
[~2023-04-05] MED LIST changes: +HYDR-3713 PO
== END ==
LOC: M SFHCWAGY 18:14
PROVIDERS: ATTEND Specialist
DX: R87.613 High grade squamous intraepithelial lesion on cytologic smear of cervix (HGSIL) (principal)

== ENCOUNTER 2023-07-17 02:55 | Emergency (ER) | payer MEDICAID, OTHER ==
[~2023-07-17] VITALS: Ht 165.1 cm; Wt 97.6 kg
[2023-07-17] MEDS ORDERED: LIDOCAINE 2% W/ EPINEPHRINE 1.7 ML DENTAL INJ SM ONE (06:40)
[2023-07-17] MEDS ORDERED: BENZOCAINE 20% GEL 9GM TUBE (ANBESOL MAX STRENGTH) TOP ONE (06:40)
[2023-07-17] MEDS ORDERED: KETO10TAB PO (07:32)
[2023-07-17] MEDS ORDERED: AMOX875T2 PO (07:32)
[2023-07-17] MEDS ORDERED: KETOROLAC 60MG 2ML VIAL IM ONE (07:35)
[2023-07-17 07:40] VITALS: BP 124/77; TEMP 97.9; O2SAT 98
== END 2023-07-17 08:07 | disposition home or self-care (01) ==
LOC: M ED 02:55
DX: K08.89 Other specified disorders of teeth and supporting structures (principal); K02.9 Dental caries, unspecified
CPT/HCPCS: 84702; 96372; 99283; J1885

== ENCOUNTER 2023-09-21 11:43 | Emergency (ER) | payer MEDICAID, OTHER ==
[~2023-09-21] VITALS: Ht 165.1 cm; Wt 96.9 kg
[~2023-09-21 11:43] MED LIST changes: +AMOX875T2 PO; +KETO10TAB PO
[2023-09-21] MEDS ORDERED: BENZOCAINE 20% GEL 9GM TUBE (ANBESOL MAX STRENGTH) TOP ONE (14:10)
[2023-09-21] MEDS ORDERED: LIDOCAINE 2% W/ EPINEPHRINE 1.7 ML DENTAL INJ SM ONE (14:10)
[2023-09-21] MEDS ORDERED: ACETAMINOPHEN 500 MG TAB PO ONE (14:10)
[2023-09-21 14:54] VITALS: BP 136/84; TEMP 97.5; O2SAT 99
== END 2023-09-21 16:00 | disposition home or self-care (01) ==
LOC: M ED 11:43
DX: K08.89 Other specified disorders of teeth and supporting structures (principal); S00.03XA Contusion of scalp, initial encounter; Y92.9 Unspecified place or not applicable; Y93.9 Activity, unspecified; W50.0XXA Accidental hit or strike by another person, initial encounter; Y99.8 Other external cause status

== ENCOUNTER 2023-10-08 14:19 | Emergency (ER) | payer MEDICAID, OTHER ==
[~2023-10-08] VITALS: Ht 162.6 cm; Wt 97.7 kg
[2023-10-08] MEDS ORDERED: IBUPROFEN 800 MG TAB PO ONE (18:30)
[2023-10-08] MEDS ORDERED: ALPRAZolam 0.25 MG TAB PO ONE (19:10)
[2023-10-08 19:31] VITALS: BP 120/63; TEMP 97.4; O2SAT 100
[2023-10-08] MEDS ORDERED: HYDR-3363 PO (19:51)
== END 2023-10-08 20:01 | disposition home or self-care (01) ==
LOC: M ED 14:19
DX: F43.0 Acute stress reaction (principal); F41.9 Anxiety disorder, unspecified; F32.A Depression, unspecified; F17.290 Nicotine dependence, other tobacco product, uncomplicated; Z82.49 Family history of ischemic heart disease and other diseases of the circulatory system; Z83.3 Family history of diabetes mellitus

== ENCOUNTER → 2024-03-10 | Outpatient (REF) | payer OTHER, MEDICAID ==
[~2024-03-10] MED LIST changes: +DOXY-440 PO; -DOXY-444 PO; +HYDR-3363 PO; +ONDA-282 PO; -ONDA4TAB6 PO
== END ==
LOC: M SFHCWAGY 14:46
PROVIDERS: ATTEND Nurse Practitioner Family
DX: N73.9 Female pelvic inflammatory disease, unspecified (principal); Z11.3 Encounter for screening for infections with a predominantly sexual mode of transmission

== ENCOUNTER → 2024-06-04 | Outpatient (REF) | payer OTHER, MEDICAID ==
[2024-06-04 16:36] LABS: Trichomonas vaginalis (AMP) NOT DETECTED (NEGATIVE)
[2024-06-04 16:59] LABS: GC DNA AMPLIFICATION NEGATIVE (NEGATIVE)
== END ==
LOC: M SFHCWAGY 14:49
PROVIDERS: ATTEND Nurse Practitioner Family
DX: N73.9 Female pelvic inflammatory disease, unspecified (principal)

== ENCOUNTER → 2024-12-15 | Outpatient (REF) | payer OTHER ==
[2024-12-15 18:50] LABS: ALBUMIN 3.9 G/DL (3.2-5.2); ALKALINE PHOSPHATASE 63 U/L (35-104); ALT/SGPT 27 U/L (7.0-40); AST/SGOT 19 U/L (<34); BILIRUBIN,TOTAL 0.5 MG/DL (0.3-1.2); BLOOD UREA NITROGEN 12 MG/DL (9-23); CALCIUM LEVEL 8.9 MG/DL (8.5-10.1); CARBON DIOXIDE LEVEL 30 MMOL/L (20-31); CHLORIDE LEVEL 106 MMOL/L (98-107); CHOLESTEROL LEVEL 157 MG/DL (<200); CHOLESTEROL RISK RATIO 2.71 (<5); CREATININE FOR GFR 0.72 MG/DL (0.55-1.30); GLOMERULAR FILTRATION RATE > 60.0 (>60); GLUCOSE, FASTING 80 MG/DL (60-100); HDL CHOLESTEROL 57.9 MG/DL (>40); LDL CHOLESTEROL 87.1 MG/DL (<100); NON-HDL-C 99.1 MG/DL; POTASSIUM SERUM 4.1 MMOL/L (3.5-5.1); SODIUM LEVEL 142 MMOL/L (136-145); TOTAL PROTEIN 7.4 G/DL (5.7-8.2); TRIGLYCERIDES LEVEL 60 MG/DL (<150)
[2024-12-15 18:54] LABS: THYROID STIMULATING HORMONE 1.403 uIU/ML (0.55-4.78)
[2024-12-15 18:55] LABS: BASO % 0.5 % (0.0-1.0); EOS % 0.6 % (0.0-3.0); HEMATOCRIT 38.2 % (36.0-47.0); HEMOGLOBIN 12.8 g/dl (12.0-15.5); LYMPH # 2.7 10^3/uL (1.5-5.0); LYMPH % 43.9 % (24.0-44.0); MEAN CORPUSCULAR HEMOGLOBIN 29.1 pg (27.0-33.0); MEAN CORPUSCULAR HGB CONC 33.5 g/dl (32.0-36.5); MEAN CORPUSCULAR VOLUME 86.8 fl (80.0-96.0); MONO # 0.4 10^3/uL (0.0-0.8); MONO % 6.2 % (2.0-8.0); NEUTROPHILS % 48.6 % (36.0-66.0); PLATELET COUNT, AUTOMATED 231 10^3/uL (150-450); WHITE BLOOD COUNT 6.2 10^3/uL (4.0-10.0)
[2024-12-15 19:15] LABS: HEMOGLOBIN A1c 4.8 % (4.0-6.0)
== END ==
LOC: M LAB REF 17:25
PROVIDERS: ATTEND Nurse Practitioner Family
DX: E66.811 Obesity, class 1 (principal); Z11.9 Encounter for screening for infectious and parasitic diseases, unspecified; R53.83 Other fatigue